=== PATIENT | female | born 1985 | race African-American/Black ===

== ENCOUNTER 2016-10-06 07:28 | Emergency (ER) | payer OTHER, MEDICAID ==
[~2016-10-06] VITALS: Ht 157.5 cm; Wt 68.7 kg
[~2016-10-06 07:28] MED LIST: ACET325T PO; BENZ1TAB PO; HALO5TAB PO; LEVA750T PO; LEVE500T8 PO; PARO30TA2 PO; PRAZ2CAP PO
[2016-10-06 07:30] VITALS: BP 122/78; PULSE 88; RESP 16; TEMP 98; O2SAT 95
--- NOTE | 2016-10-06 08:02 | PD ---
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 Patient reports that 48 hours ago, she used crack, reports that after she used crack, she then had oral sex with a "man in a truck" and then proceeded to have vaginal intercourse without using any contraceptives. Patient reports that she developed rash and bumps around her lips as well as purulent discharge. Patient concerned that she may have an STD. Patient with no fevers or chills this time. Patient denies abdominal pain, nausea or vomiting. Patient with no other complaints at this time. PFSH Past Medical History ADD: Yes ADHD: Yes Anemia: Yes Arthritis: No Asthma: Yes Blood Disorders: No Bipolar Disorder: Yes Anxiety: Yes Depression: Yes Heart Rhythm Problems: No Cancer: No Cardiovascular Problems: No High Cholesterol: No Chest Pain: No Congestive Heart Failure: No COPD: No Cerebrovascular Accident: No Diabetes: No Diminished Hearing: No Endocrine: No Gastrointestinal Disorders: No GERD: Yes Genitourinary: Yes Headaches: Yes Hepatitis: No Hiatal Hernia: No Hypertension: No Immune Disorder: No Implanted Vascular Access Dvce: No Kidney Stones: No Musculoskeletal: No Neurologic: Yes Psychiatric: Yes (BIPOLAR, PSTD, ADHD) Reproductive: No Respiratory: Yes (ASTHMA) Migraines: No Myocardial Infarction: No Renal Failure: No Seizures: Yes Sleep Apnea: No Thyroid Disease: No Ulcer: No ?: Not LMP: 10/02/16 Menopausal: No : 4 Para: 2 Miscarriage: 1 : 0 Past Surgical History Abdominal Surgery: No Appendectomy: No Cardiac Surgery: No Cholecystectomy: Yes Ear Surgery: No Endocrine Surgery: No Eye Surgery: No Genitourinary Surgery: No Gynecologic Surgery: No Oral Surgery: Yes Thoracic Surgery: No Tonsillectomy: Yes (T&A AGE 13) Other Surgery: Yes (denies) Social History Alcohol Use: No Tobacco Use: Yes (2-3 CIGARETTES DAILY) Substance Use: Yes (MARIJUANA OCCASIONALLY, pt states been using Flakka) Allergies-Medications (Allergen,Severity, Reaction): Coded Allergies: Bee Sting (Verified Allergy, Severe, Anaphylaxis, 3/6/17) Penicillin (Verified Allergy, Severe, HIVES, THROAT CLOSED, 10/06/16) UNKNOWN Sulfa (Verified Allergy, Severe, HIVES, THROAT CLOSED, 10/06/16) UNKNOWN *MDRO Multi-Drug Resistant Organism (Verified Allergy, Unknown, 10/06/16) MRSA Reported Meds & Prescriptions Reported Meds & Active Scripts Active Macrobid (Nitrofurantoin Monoh/Nitrofur Macro) 100 Mg Cap 100 Mg PO BID 10 Days Reported Levetiracetam 500 Mg Tab 500 Mg PO BID Review of Systems General / Constitutional: No: Fever Eyes: No: Visual changes HENT: No: Headaches Cardiovascular: No: Chest Pain or Discomfort Respiratory: No: Shortness of Breath Gastrointestinal: No: Abdominal Pain Genitourinary: Positive: Discharge, No: Dysuria Musculoskeletal: No: Pain Skin: No Rash Neurologic: No: Weakness Psychiatric: No: Depression Endocrine: No: Polydipsia Hematologic/Lymphatic: No: Easy Bruising Physical Exam Narrative GENERAL: NAD SKIN: Warm and dry. HEAD: Atraumatic. Normocephalic. ENT: No nasal bleeding or discharge. Mucous membranes pink and moist. patient with rash around lips, pt with whitish intraoral lesions around mucosa, no tongue swelling, uvula midline with no swelling, no thrush NECK: Trachea midline. No JVD. CARDIOVASCULAR: Regular rate and rhythm. No murmur appreciated. RESPIRATORY: No accessory muscle use. Clear to auscultation. Breath sounds equal bilaterally. GASTROINTESTINAL: Abdomen soft, non-tender, nondistended. Hepatic and splenic margins not palpable. : exam performed with RN at bedside, patient with yellow vaginal discharge, no cmt or adnexal tenderness MUSCULOSKELETAL: No obvious deformities. No clubbing. No cyanosis. No edema. NEUROLOGICAL: Awake and alert. No obvious cranial nerve deficits. Motor grossly within normal limits. Normal speech. PSYCHIATRIC: Appropriate mood and affect; insight and judgment normal. Data Data Last Documented VS Vital Signs Date Time Temp Pulse Resp B/P Pulse Ox O2 Delivery O2 Flow Rate FiO2 10/06/16 07:30 98.0 88 16 122/78 95 Room Air Orders Gc And Chlamydia Pcr (10/06/16 07:50) Wet Prep Profile (10/06/16 07:50) Urinalysis - C+S If Indicated (10/06/16 07:50) Ed Urine Pregnancytest Poc (10/06/16 07:50) Azithromycin Powd Pack (Zithromax Powd P (10/06/16 08:30) Urine Culture (10/06/16 07:55) Nitrofurantoin Monohyd Macrocr (Macrobid (10/06/16 10:00) Labs Laboratory Tests Test 10/06/16 07:55 Urine Color YELLOW Urine Turbidity HAZY Urine pH 6.0 Urine Specific [place] 1.016 Urine Protein 30 mg/dL Urine Glucose (UA) NEG mg/dL Urine Ketones 80 mg/dL Urine Occult Blood LARGE Urine Nitrite NEG Urine Bilirubin NEG Urine Urobilinogen LESS THAN 2.0 MG/DL Urine Leukocyte Esterase LARGE Urine RBC 2 /hpf Urine WBC 87 /hpf Urine WBC Clumps OCC Urine Squamous Epithelial 3 /hpf Cells Urine Bacteria MANY /hpf Microscopic Urinalysis Comment CULTURE INDICATED Clue Cells (Wet Prep) NONE SEEN Vaginal Trichomonas (Wet Prep) NONE SEEN Vaginal Yeast (Wet Prep) NONE SEEN MDM Medical Decision Making Medical Screen Exam Complete: Yes Emergency Medical Condition: Yes Interpretation(s) Vital Signs Date Time Temp Pulse Resp B/P Pulse Ox O2 Delivery O2 Flow Rate FiO2 10/06/16 07:30 98.0 88 16 122/78 95 Room Air Differential Diagnosis Cervicitis, STD, UTI Narrative Course Patient is a 31-year-old female who presents to emergency room with complaints of ulcerations around her lips as well as vaginal discharge after she performed oral sex and had vaginal intercourse 48 hours ago. Patient reports that she does not have access to boat tester, reports that the intercourse was unprotected. Patient concern for possible STDs. Patient with no fevers or chills, denies any abdominal pain at this time. Patient also with intraoral ulcerations, ulcerations appear to be herpetic in nature. We'll treat with acyclovir Plan to perform pelvic exam on patient. Pelvic exam performed with RN at bedside, patient with yellowish vaginal discharge. Plan to treat for possible gonorrhea/chlamydia. Reviewed UA with patient, will treat for UTI. Patient understands importance of following up with boat tester. Patient will follow up with cultures today. Discussed the importance of refraining from sexual activity until all cultures are resulted, understands that if cultures are positive, SEXUAL partners will need to be treated. Patient understands needs to follow-up with her primary care doctor as well as boat tester for full STD panel including but not limited to HIV Diagnosis Primary Impression: Cervicitis Additional Impressions: UTI (urinary tract infection) Qualified Code: N30.00 - Acute cystitis without hematuria Herpes Referrals: [facility] Patient Instructions: General Instructions Additional Instructions: Please follow-up with all cultures from today Do not purchase patent sexual activity until all cultures are resulted, if cultures are positive, all sexual partners will need to be treated Return to ER if symptoms progress or worsen Please follow-up with a boat tester as soon as possible Med/Other Pt SpecificInfo: Prescription(s) given Scripts Valacyclovir 500 Mg [id number] Mg PO TID #30 TAB Ref 0 Prov:Alondra Hernandez DO 10/06/16 Nitrofurantoin Monohydrate Macrocrystals (Macrobid)100 Mg [id number] Mg PO BID 10 Days Ref 0 Prov:Alondra Hernandez DO 10/06/16 Disposition: 01 DISCHARGE HOME Condition: Stable Alondra Hernandez DO Oct 06, 2016 08:01
[2016-10-06] MEDS ORDERED: AZITHROMYCIN PWD FOR SUSP 1 GM PACKET PO ONE (08:30)
[2016-10-06 08:37] LABS: BACTERIA, URINE MANY /hpf; BLOOD, URINE LARGE (NEG); COMMENT (UR) CULTURE INDICATED; CULTURE IF INDICATED CULTURE INDICATED; GLUCOSE,URINE NEG (NEG); KETONE, URINE 80 mg/dL (NEG); NITRITE,URINE NEG (NEG); SQUAMOUS EPITHELIAL CELL URINE 3 /hpf (0-5); URINE COLOR YELLOW (YELLW/STRAW)
[2016-10-06] MEDS ORDERED: MACR100C2 PO (09:55)
[2016-10-06] MEDS ORDERED: VALA500T PO (10:00)
[2016-10-06] MEDS ORDERED: NITROFURANTOIN MONOHYD MACROCR 100 MG CAP PO ONE (10:00)
[2016-10-06 13:42] LABS: CHLAMYDIA PCR NOT DETECTED (NOT DETECT); NEISSERIA PCR DETECTED (NOT DETECT)
== END 2016-10-06 10:33 | disposition home or self-care (01) ==
LOC: NEPC 07:28
DX: N72 Inflammatory disease of cervix uteri (principal); N39.0 Urinary tract infection, site not specified; B00.9 Herpesviral infection, unspecified; F19.90 Other psychoactive substance use, unspecified, uncomplicated; B96.29 Other Escherichia coli [E. coli] as the cause of diseases classified elsewhere; Z72.0 Tobacco use
CPT/HCPCS: 81001; 84703; 87077; 87086; 87186; 87210; 87491; 87591; 99283

== ENCOUNTER 2016-10-14 16:35 | Emergency (ER) | payer OTHER ==
[~2016-10-14] VITALS: Ht 157.5 cm; Wt 60.0 kg
[~2016-10-14 16:35] MED LIST changes: -ACET325T PO; -BENZ1TAB PO; -HALO5TAB PO; -LEVA750T PO; +MACR100C2 PO; -PARO30TA2 PO; -PRAZ2CAP PO; +VALA500T PO
[2016-10-14 16:37] VITALS: BP 124/75; PULSE 78; RESP 15; TEMP 98.3; O2SAT 98
--- NOTE | 2016-10-14 18:39 | PD ---
HPI Chief Complaint: Medical Clearance Time Seen by Provider: 18:39 Travel History International Travel<30 days: No Contact w/Intl Traveler<30days: No Traveled to known affect area: No History of Present Illness HPI 31 year-old female presents to the emergency department for evaluation of multiple vague complaints. Patient was recently diagnosed and treated for UTI and gonorrhea. She went to the health department diagnosed with herpetic lesions that surrounded her mouth. States that syphilis, HIV, and test for cure were all negative. States she has been "keeping straight" and not participating in sexual activity in exchange for crack cocaine. His concern because around her lips is dry. She does have 1 ulcerative lesion on the anterior aspect of her right upper lip. She had a chest antritis. No difficulty breathing. Is concerned she may have a yeast infection. Currently not having any vaginal discharge. No bleeding. No abdominal pain, nausea, vomiting. No fever or chills. No other symptoms to report. PFSH Past Medical History ADD: Yes ADHD: Yes Anemia: Yes Arthritis: No Asthma: Yes Blood Disorders: No Bipolar Disorder: Yes Anxiety: Yes Depression: Yes Heart Rhythm Problems: No Cancer: No Cardiovascular Problems: No High Cholesterol: No Chest Pain: No Congestive Heart Failure: No COPD: No Cerebrovascular Accident: No Diabetes: No Diminished Hearing: No Endocrine: No Gastrointestinal Disorders: No GERD: Yes Genitourinary: Yes Headaches: Yes Hepatitis: No Hiatal Hernia: No Hypertension: No Immune Disorder: No Implanted Vascular Access Dvce: No Kidney Stones: No Musculoskeletal: No Neurologic: Yes Psychiatric: Yes (BIPOLAR, PSTD, ADHD) Reproductive: No Respiratory: Yes (ASTHMA) Migraines: No Myocardial Infarction: No Renal Failure: No Seizures: Yes Sleep Apnea: No Thyroid Disease: No Ulcer: No ?: Unknown LMP: 09/2016 Menopausal: No : 4 Para: 2 Miscarriage: 1 : 0 Past Surgical History Abdominal Surgery: No Appendectomy: No Cardiac Surgery: No Cholecystectomy: Yes Ear Surgery: No Endocrine Surgery: No Eye Surgery: No Genitourinary Surgery: No Gynecologic Surgery: No Oral Surgery: Yes Thoracic Surgery: No Tonsillectomy: Yes (T&A AGE 13) Other Surgery: Yes (denies) Social History Alcohol Use: No Tobacco Use: Yes (2-3 CIGARETTES DAILY) Substance Use: Yes (MARIJUANA OCCASIONALLY, pt states been using Flakka, cocaine) Allergies-Medications (Allergen,Severity, Reaction): Coded Allergies: Bee Sting (Verified Allergy, Severe, Anaphylaxis, 10/14/16) Penicillin (Verified Allergy, Severe, HIVES, THROAT CLOSED, 10/14/16) UNKNOWN Sulfa (Verified Allergy, Severe, HIVES, THROAT CLOSED, 10/14/16) UNKNOWN *MDRO Multi-Drug Resistant Organism (Verified Allergy, Unknown, 10/14/16) MRSA Reported Meds & Prescriptions Reported Meds & Active Scripts Active Diflucan (Fluconazole) 150 Mg Tab 150 Mg PO ONCE Valacyclovir (Valacyclovir HCl) 500 Mg Tab 500 Mg PO TID Macrobid (Nitrofurantoin Monoh/Nitrofur Macro) 100 Mg Cap 100 Mg PO BID 10 Days Reported Levetiracetam 500 Mg Tab 500 Mg PO BID Review of Systems Except as stated in HPI: all other systems reviewed are Neg Physical Exam Narrative GENERAL: Well-nourished female patient, ambulatory distress SKIN: Warm and dry. Perioral Hypopigmentation with some flaking skin. There is acanthus ulcer inside the superior lip on the right. HEAD: Atraumatic. Normocephalic. EYES: Pupils equal and round. No scleral icterus. No injection or drainage. ENT: No nasal bleeding or discharge. Mucous membranes pink and moist. NECK: Trachea midline. No JVD. CARDIOVASCULAR: Regular rate and rhythm. No murmur appreciated. RESPIRATORY: No accessory muscle use. Clear to auscultation. Breath sounds equal bilaterally. GASTROINTESTINAL: Abdomen soft, non-tender, nondistended. Hepatic and splenic margins not palpable. GENITOURINARY: Normal external genitalia without lesions. There is a chunky white discharge in between the labia consistent with a yeast infection. Bleeding or drainage from the vaginal vault. MUSCULOSKELETAL: No obvious deformities. No clubbing. No cyanosis. No edema. NEUROLOGICAL: Awake and alert. No obvious cranial nerve deficits. Motor grossly within normal limits. Normal speech. Data Data Last Documented VS Vital Signs Date Time Temp Pulse Resp B/P Pulse Ox O2 Delivery O2 Flow Rate FiO2 10/14/16 18:54 70 16 113/56 97 Room Air 10/14/16 16:37 98.3 Orders Gc And Chlamydia Pcr (10/14/16 18:48) Urinalysis - C+S If Indicated (10/14/16 18:48) Ed Urine Pregnancytest Poc (10/14/16 18:48) Labs Laboratory Tests Test 10/14/16 18:57 Urine Color YELLOW Urine Turbidity CLOUDY Urine pH 7.5 Urine Specific [place] 1.020 Urine Protein TRACE mg/dL Urine Glucose (UA) NEG mg/dL Urine Ketones NEG mg/dL Urine Occult Blood NEG Urine Nitrite NEG Urine Bilirubin NEG Urine Urobilinogen LESS THAN 2.0 MG/DL Urine Leukocyte Esterase TRACE Urine RBC 5 /hpf Urine WBC 6 /hpf Urine Squamous Epithelial 9 /hpf Cells Urine Amorphous Sediment RARE Urine Bacteria RARE /hpf Microscopic Urinalysis Comment CULT NOT INDICATED MDM Medical Decision Making Medical Screen Exam Complete: Yes Emergency Medical Condition: Yes Medical Record Reviewed: Yes Differential Diagnosis Candidiasis versus cervicitis versus STD versus UTI Narrative Course 31-year-old female presents to the emergency department for evaluation. Physical exam is consistent with a perioral dermatitis likely secondary to recent herpetic outbreak. Patient does have an acanthus on the inside of the right superior lip. Vaginal exam is consistent with a vaginal candidiasis. Patient will be given a prescription for Diflucan. She is counseled on care. She is encouraged to follow-up with primary care provider and return immediately with any acute worsening symptoms. Diagnosis Primary Impression: Vaginal candidiasis Additional Impressions: Canker sore Perioral dermatitis Referrals: [facility] Primary Care Physician Patient Instructions: General Instructions, Vulvovaginal Candidiasis (ED) Additional Instructions: Maintain perineal hygiene Follow-up with a b2b sales manager Return immediately with any acute worsening symptoms Med/Other Pt SpecificInfo: Prescription(s) given Scripts Fluconazole (Diflucan)150 Mg [id number] Mg PO ONCE #1 TAB Ref 0 Prov:Yani Pressley 10/14/16 Disposition: 01 DISCHARGE HOME Condition: Stable Yani Pressley Oct 14, 2016 18:39
[2016-10-14 18:54] VITALS: BP 113/56; PULSE 70; RESP 16; O2SAT 97
[2016-10-14 19:21] LABS: BACTERIA, URINE RARE /hpf; BLOOD, URINE NEG (NEG); COMMENT (UR) CULT NOT INDICATED; CULTURE IF INDICATED CULT NOT INDICATED; GLUCOSE,URINE NEG (NEG); KETONE, URINE NEG (NEG); NITRITE,URINE NEG (NEG); PH, URINE 7.5 (5.0-8.5); SQUAMOUS EPITHELIAL CELL URINE 9 /hpf (0-5); URINE COLOR YELLOW (YELLW/STRAW)
[2016-10-14] MEDS ORDERED: DIFL150T PO (20:37)
[2016-10-14 22:41] LABS: CHLAMYDIA PCR NOT DETECTED (NOT DETECT); NEISSERIA PCR NOT DETECTED (NOT DETECT)
== END 2016-10-14 22:00 | disposition home or self-care (01) ==
LOC: NEPE 16:35
DX: B37.3 Candidiasis of vulva and vagina (principal); K12.0 Recurrent oral aphthae; L71.0 Perioral dermatitis; J45.909 Unspecified asthma, uncomplicated; F17.210 Nicotine dependence, cigarettes, uncomplicated
CPT/HCPCS: 81001; 84703; 87491; 87591; 99283

== ENCOUNTER 2016-11-26 19:59 | Emergency (ER) | payer OTHER ==
[~2016-11-26 19:59] MED LIST changes: +DIFL150T PO
[2016-11-26 20:01] VITALS: BP 117/91; PULSE 112; RESP 18; TEMP 99.7; O2SAT 97
[2016-11-26] MEDS ORDERED: SODIUM CHLOR 0.9% 1000 ML INJ 1,000 ML IV SCH (20:22)
--- NOTE | 2016-11-26 20:25 | PD ---
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 Patient states she has history of pancreatitis and was told that she should not drink alcohol. She continues to drink alcohol and states that she is beginning have nausea and vomiting. She also thinks she may be because she has not had a menstrual cycle since September 03. She also is reporting a thick greenish white vaginal discharge and odor and believes she may have an STD. Denies any fever or chills. No chest tightness. No difficulty breathing. No other symptoms to report. PFSH Past Medical History ADD: Yes ADHD: Yes Anemia: Yes Arthritis: No Asthma: Yes Blood Disorders: No Bipolar Disorder: Yes Anxiety: Yes Depression: Yes Heart Rhythm Problems: No Cancer: No Cardiovascular Problems: No High Cholesterol: No Chest Pain: No Congestive Heart Failure: No COPD: No Cerebrovascular Accident: No Diabetes: No Diminished Hearing: No Endocrine: No Gastrointestinal Disorders: No GERD: Yes Genitourinary: No Headaches: Yes Hepatitis: No Hiatal Hernia: No Hypertension: No Immune Disorder: No Implanted Vascular Access Dvce: No Kidney Stones: No Musculoskeletal: No Neurologic: Yes Psychiatric: Yes (BIPOLAR, PSTD, ADHD) Reproductive: No Respiratory: Yes (asthma) Migraines: No Myocardial Infarction: No Renal Failure: No Seizures: Yes Sleep Apnea: No Thyroid Disease: No Ulcer: No ?: Unknown LMP: 09/03/16 Menopausal: No : 4 Para: 2 Miscarriage: 1 : 0 Past Surgical History Abdominal Surgery: No Appendectomy: No Cardiac Surgery: No Cholecystectomy: Yes Ear Surgery: No Endocrine Surgery: No Eye Surgery: No Genitourinary Surgery: No Gynecologic Surgery: No Oral Surgery: Yes Thoracic Surgery: No Tonsillectomy: Yes (T&A AGE 13) Other Surgery: Yes (denies) Social History Alcohol Use: No Tobacco Use: Yes (2-3 CIGARETTES DAILY) Substance Use: Yes (MARIJUANA OCCASIONALLY, pt states been using Flakka, cocaine) Allergies-Medications (Allergen,Severity, Reaction): Coded Allergies: Bee Sting (Verified Allergy, Severe, Anaphylaxis, 10/14/16) Penicillin (Verified Allergy, Severe, HIVES, THROAT CLOSED, 10/14/16) UNKNOWN Sulfa (Verified Allergy, Severe, HIVES, THROAT CLOSED, 10/14/16) UNKNOWN *MDRO Multi-Drug Resistant Organism (Verified Allergy, Unknown, 10/14/16) MRSA Reported Meds & Prescriptions Reported Meds & Active Scripts Active Diflucan (Fluconazole) 150 Mg Tab 150 Mg PO ONCE Valacyclovir (Valacyclovir HCl) 500 Mg Tab 500 Mg PO TID Macrobid (Nitrofurantoin Monoh/Nitrofur Macro) 100 Mg Cap 100 Mg PO BID 10 Days Reported Levetiracetam 500 Mg Tab 500 Mg PO BID Review of Systems Except as stated in HPI: all other systems reviewed are Neg Physical Exam Narrative GENERAL: Well-nourished female patient, in no acute distress SKIN: Focused skin assessment warm/dry. HEAD: Atraumatic. Normocephalic. EYES: Pupils equal and round. No scleral icterus. No injection or drainage. ENT: No nasal bleeding or discharge. Mucous membranes pink and moist. NECK: Trachea midline. No JVD. CARDIOVASCULAR: Regular rate and rhythm. No murmur appreciated. RESPIRATORY: No accessory muscle use. Clear to auscultation. Breath sounds equal bilaterally. GASTROINTESTINAL: Abdomen soft, nondistended. Epigastric tenderness to palpation.. Hepatic and splenic margins not palpable. GENITOURINARY: Normal external genitalia without lesions or erythema. Vaginal vault without blood. There is a yellow white discharge. Cervical os was closed. Cervical motion tenderness.. Uterus nontender and nonenlarged. Bilateral adnexa nontender without masses. MUSCULOSKELETAL: No obvious deformities. No clubbing. No cyanosis. No edema. NEUROLOGICAL: Awake and alert. No obvious cranial nerve deficits. Motor grossly within normal limits. Normal speech. PSYCHIATRIC: Appropriate mood and affect; insight and judgment normal. Data Data Last Documented VS Vital Signs Date Time Temp Pulse Resp B/P Pulse Ox O2 Delivery O2 Flow Rate FiO2 11/26/16 20:01 99.7 112 18 117/91 97 Room Air Orders Complete Blood Count With Diff (11/26/16 20:22) Comprehensive Metabolic Panel (11/26/16 20:22) Lipase (11/26/16 20:22) Urinalysis - C+S If Indicated (11/26/16 20:22) Iv Access Insert/Monitor (11/26/16 20:22) Ecg Monitoring (11/26/16 20:22) Oximetry (11/26/16 20:22) Sodium Chlor 0.9% 1000 Ml Inj (Ns 1000 M (11/26/16 20:22) Sodium Chloride 0.9% Flush (Ns Flush) (11/26/16 20:30) Ed Urine Pregnancytest Poc (11/26/16 20:22) Wet Prep Profile (11/26/16 20:22) Gc And Chlamydia Pcr (11/26/16 20:22) Ceftriaxone Inj (Rocephin Inj) (11/26/16 20:45) Lidocaine 1% Inj (50 Ml) (Xylocaine 1% I (11/26/16 20:45) Azithromycin (Zithromax) (11/26/16 20:45) MDM Medical Decision Making Medical Screen Exam Complete: Yes Emergency Medical Condition: Yes Medical Record Reviewed: Yes Differential Diagnosis PID versus STD versus cervicitis versus UTI versus versus gastritis versus pancreatitis versus cholecystitis Narrative Course 31 year-old female presents to the emergency department for evaluation of epigastric abdominal pain, possible , and vaginal discharge. Patient appears without distress. She does have epigastric tenderness to palpation. She also has a thick vaginal discharge and cervical motion tenderness. She is treated empirically for gonorrhea and chlamydia while GC PCR pends. Wet prep, UA, and abdominal lab work is sent. 2043 patient states she has been unable to void. She is in the process of adding IV normal saline bolus. 2099 patient signed out to my attending physician Dr. Munguia who will soon care and disposition will pend his judgment. Condition: Stable PressleyEdita aguilerasally MORFIN Nov 26, 2016 20:24
[2016-11-26] MEDS ORDERED: cefTRIAXone 250 MG VIAL IM ONE (20:45)
[2016-11-26] MEDS ORDERED: AZITHROMYCIN 250 MG TAB PO ONE (20:45)
[2016-11-26] MEDS ORDERED: LIDOCAINE HCL 1% 50 ML VIAL XX ONE (20:45)
[2016-11-26 21:28] LABS: AUTOMATED NEUTROPHIL # 5.1 TH/MM3 (1.8-7.7); BASOPHIL % 0.4 % (0.0-2.0); EOSINOPHIL % 0.6 % (0.0-4.0); HEMATOCRIT 41.2 % (35.0-46.0); HEMO FLAGS DIFF FINAL; LYMPH % 14.5 % (9.0-44.0); MEAN CELL VOLUME 91.7 FL (80.0-100.0); MEAN CORPUSCULAR HEMOGLOBIN 30.3 PG (27.0-34.0); MONO % 8.2 % (0.0-8.0); NEUT % 76.3 % (16.0-70.0); PLATELET COUNT 226 TH/MM3 (150-450); RED BLOOD COUNT 4.49 MIL/MM3 (4.00-5.30); RED CELL DISTRIBUTION WIDTH 15.1 % (11.6-17.2); WHITE BLOOD COUNT 6.6 TH/MM3 (4.0-11.0)
[2016-11-26 21:30] LABS: BLOOD, URINE NEG (NEG); COMMENT (UR) CULT NOT INDICATED; CULTURE IF INDICATED CULT NOT INDICATED; GLUCOSE,URINE NEG (NEG); KETONE, URINE NEG (NEG); MUCUS URINE FEW /lpf (OCC); NITRITE,URINE NEG (NEG); SQUAMOUS EPITHELIAL CELL URINE <1 /hpf (0-5); URINE COLOR YELLOW (YELLW/STRAW)
[2016-11-26] MEDS ORDERED: PANTOPRAZOLE SODIUM 40 MG VIAL IVP ONE (21:30)
[2016-11-26] MEDS ORDERED: ALUMINUM/MAGNESIUM/SIMETH 30 ML CUP PO ONE (21:30)
[2016-11-26] MEDS ORDERED: KETOROLAC TROMETHAMINE 30 MG/ML (IVP) VIAL IV PUSH ONE (21:30)
[2016-11-26] MEDS ORDERED: LIDOCAINE VISCOUS 2% SOLN 15 ML UDC PO ONE (21:30)
[2016-11-26 21:42] LABS: ANION GAP 7 MEQ/L (5-15); AST (GOT) 19 U/L (15-37); BICARBONATE 27.2 MEQ/L (21.0-32.0); BLOOD UREA NITROGEN 11 MG/DL (7-18); CHLORIDE 103 MEQ/L (98-107); GLOMERULAR FILTRATION RATE 104 ML/MIN (>89); POTASSIUM 3.9 MEQ/L (3.5-5.1); SODIUM (NA) 137 MEQ/L (136-145)
[2016-11-26 21:46] LABS: ALKALINE PHOSPHATASE 68 U/L (45-117); ALT (GPT) 21 U/L (10-53); TOTAL BILIRUBIN ADULT 0.2 MG/DL (0.2-1.0)
[2016-11-26] MEDS: SODIUM CHLORIDE 0.9% FLUSH 10 ML FLUSH IV FLUSH PRN ×3 (22:05→22:20)
[2016-11-26] MEDS ORDERED: DOXY100T PO (23:31)
--- NOTE | 2016-11-26 23:31 | PD ---
Physical Exam Narrative Patient was seen by my fast food sales assistant and signed out to me. Data Data Last Documented VS Vital Signs Date Time Temp Pulse Resp B/P Pulse Ox O2 Delivery O2 Flow Rate FiO2 11/26/16 20:01 99.7 112 18 117/91 97 Room Air Orders Complete Blood Count With Diff (11/26/16 20:22) Comprehensive Metabolic Panel (11/26/16 20:22) Lipase (11/26/16 20:22) Urinalysis - C+S If Indicated (11/26/16 20:22) Iv Access Insert/Monitor (11/26/16 20:22) Ecg Monitoring (11/26/16 20:22) Oximetry (11/26/16 20:22) Sodium Chlor 0.9% 1000 Ml Inj (Ns 1000 M (11/26/16 20:22) Sodium Chloride 0.9% Flush (Ns Flush) (11/26/16 20:30) Ed Urine Pregnancytest Poc (11/26/16 20:22) Wet Prep Profile (11/26/16 20:22) Gc And Chlamydia Pcr (11/26/16 20:22) Ceftriaxone Inj (Rocephin Inj) (11/26/16 20:45) Lidocaine 1% Inj (50 Ml) (Xylocaine 1% I (11/26/16 20:45) Azithromycin (Zithromax) (11/26/16 20:45) Ketorolac Inj (Toradol Inj) (11/26/16 21:30) Pantoprazole Inj (Protonix Inj) (11/26/16 21:30) Al-Mag Hy-Si 40-40-4 Mg/Ml Liq (Mag-Al P (11/26/16 21:30) Lidocaine 2% Viscous (Xylocaine 2% Visco (11/26/16 21:30) Labs Laboratory Tests Test 11/26/16 11/26/16 11/26/16 20:31 20:44 21:00 Clue Cells (Wet Prep) NONE SEEN Vaginal Trichomonas (Wet Prep) NONE SEEN Vaginal Yeast (Wet Prep) NONE SEEN White Blood Count 6.6 TH/MM3 Red Blood Count 4.49 MIL/MM3 Hemoglobin 13.6 GM/DL Hematocrit 41.2 % Mean Corpuscular Volume 91.7 FL Mean Corpuscular Hemoglobin 30.3 PG Mean Corpuscular Hemoglobin 33.0 % Concent Red Cell Distribution Width 15.1 % Platelet Count 226 TH/MM3 Mean Platelet Volume 9.0 FL Neutrophils (%) (Auto) 76.3 % Lymphocytes (%) (Auto) 14.5 % Monocytes (%) (Auto) 8.2 % Eosinophils (%) (Auto) 0.6 % Basophils (%) (Auto) 0.4 % Neutrophils # (Auto) 5.1 TH/MM3 Lymphocytes # (Auto) 1.0 TH/MM3 Monocytes # (Auto) 0.5 TH/MM3 Eosinophils # (Auto) 0.0 TH/MM3 Basophils # (Auto) 0.0 TH/MM3 CBC Comment DIFF FINAL Differential Comment Sodium Level 137 MEQ/L Potassium Level 3.9 MEQ/L Chloride Level 103 MEQ/L Carbon Dioxide Level 27.2 MEQ/L Anion Gap 7 MEQ/L Blood Urea Nitrogen 11 MG/DL Creatinine 0.79 MG/DL Estimat Glomerular Filtration 104 ML/MIN Rate Random Glucose 87 MG/DL Calcium Level 8.5 MG/DL Total Bilirubin 0.2 MG/DL Aspartate Amino Transf 19 U/L (AST/SGOT) Alanine Aminotransferase 21 U/L (ALT/SGPT) Alkaline Phosphatase 68 U/L Total Protein 7.4 GM/DL Albumin 3.5 GM/DL Lipase 189 U/L Urine Color YELLOW Urine Turbidity CLEAR Urine pH 6.0 Urine Specific [place] 1.025 Urine Protein NEG mg/dL Urine Glucose (UA) NEG mg/dL Urine Ketones NEG mg/dL Urine Occult Blood NEG Urine Nitrite NEG Urine Bilirubin NEG Urine Urobilinogen 2.0 MG/DL Urine Leukocyte Esterase NEG Urine RBC 1 /hpf Urine WBC 2 /hpf Urine Squamous Epithelial <1 /hpf Cells Urine Mucus FEW /lpf Microscopic Urinalysis Comment CULT NOT INDICATED MDM Supervised Visit with ANTON: Yes Interpretation(s) 23:13 PM. CBC within normal limit. CMP within normal limit. UA is negative. Wet prep negative. Urine test negative. Diagnosis Primary Impression: PID (acute pelvic inflammatory disease) Patient Instructions: General Instructions Additional Instruction: Take medications as directed. Follow-up with personal physician. Return if worse. Med/Other Pt SpecificInfo: Prescription(s) given Scripts Doxycycline Hyclate 100 Mg Frc160 Mg PO BID #14 TAB Prov:Miguel Munguia MD 11/26/16 Disposition: 01 DISCHARGE HOME Condition: Stable Miguel Munguia MD Nov 26, 2016 23:31
[2016-11-27 00:30] LABS: CHLAMYDIA PCR NOT DETECTED (NOT DETECT); NEISSERIA PCR NOT DETECTED (NOT DETECT)
== END 2016-11-26 23:44 | disposition home or self-care (01) ==
LOC: NEPD 19:59
DX: N73.9 Female pelvic inflammatory disease, unspecified (principal); R10.13 Epigastric pain; R10.12 Left upper quadrant pain; R11.2 Nausea with vomiting, unspecified; Z72.0 Tobacco use; Z86.59 Personal history of other mental and behavioral disorders; Z86.2 Personal history of diseases of the blood and blood-forming organs and certain disorders involving the immune mechanism; Z87.09 Personal history of other diseases of the respiratory system; Z87.19 Personal history of other diseases of the digestive system; Z86.69 Personal history of other diseases of the nervous system and sense organs
CPT/HCPCS: 80053; 81001; 83690; 84703; 85025; 87210; 87491; 87591; 96372; 96374; 96375; 99284; C9113; J0696; J1885; J7030

== ENCOUNTER 2017-05-06 14:12 | Observation (INO) | payer MEDICAID, OTHER ==
[2017-05-06] VITALS (7 sets, daily range): BP systolic 70–92; BP diastolic 38–73; PULSE 81–90; TEMP 99.2
[~2017-05-06 14:12] MED LIST changes: -DIFL150T PO; +DOXY100T PO; -LEVE500T8 PO; -MACR100C2 PO; -VALA500T PO
--- NOTE | 2017-05-06 15:10 | PD ---
HPI Chief Complaint cramping Date Seen: May 06, 2017 Time Seen: 14:52 (Emilio Moody MD, R2) Travel History International Travel<30 Days: No Contact w/Intl Traveler<30Days: No (Emilio Moody MD, R2) History of Present Illness HPI Ms. Boss is a 31-year-old female at 26 weeks who presents with cramping. Patient states she started noticing cramping earlier today. Also having some green discharge for the last 2 weeks. She thinks it might be due to not eating or drinking anything last 2 weeks. She is concerned that she has gonorrhea. She also states she has been taking using cocaine and flakka every day for the last few months. She denies any vaginal bleeding or loss of fluids. Endorses movement. She is currently homeless and has limited care. She states she did see Dr. Hilario early on in while in [place]. Endorses sexual activity last night. She also states she has a history of seizures and her last one was 2 days ago. States she hasn' t taken her vitamins for several weeks. Also has not taken her psych meds or keppra for several days, although she has the medications. She is unsure of any labs or ultrasound. Weeks Gestation: 26 Para: 3 : 5 Miscarriage: 1 (Emilio Moody MD, R2) HPI 31 yo @ 26w0d. care with Dr. Hilario at [facility]. She has had two visits at the office and reports on visit while incarcerated. She is out on crump until the delivery. She presents with c/o cramping today/ abdominal pain. She reports being hungry and has not eaten in several days and has not been drinking water. She reports using cocaine and flakka daily, and has drank ETOH during this . She is homeless. She engages in high- risk sex, last 2 days ago. She had had gonorrhea this and is concerns for re-infection. (Caron Maya MD) History Past Medical History Narrative Medical Seizures Asthma Bipolar (Emilio Moody MD, R2) Narrative Medical History of PP Depresion Polysubstance abuse poor social situation STD - Trich, GN, HSV Seizure d/o Bipolar d/ (Caron Maya MD) Obstetric History Obstetric History 1st - at term 2 - at term 3 - miscarriage 4 - at term, child passed at 4 months due to heart defect (Emilio Moody MD, R2) Obstetric History 2007 - lives with her mother 2009 - lives with her mother 2011 - @ 4mo from congenital heart defect SAB (Caron Maya MD) Past Surgical History Narrative Surgical Tonsillectomy Adenoidectomy Cholecystectomy (Emilio Moody MD, R2) Family History Family History: Negative (Emilio Moody MD, R2) Social History Alcohol Use: No Tobacco Use: Yes (up to 1 PPD) Substance Abuse: Yes (cocaine, flakka daily) (Emilio Moody MD, R2) Alcohol Use: Yes Tobacco Use: Yes Substance Abuse: Yes (Caron Maya MD) Allergies-Medications (Allergen,Severity, Reaction): Coded Allergies: Sulfa (Sulfonamide Antibiotics) (Unverified Allergy, Severe, HIVES, THROAT CLOSED, 03/17/17) UNKNOWN bee venom protein (honey bee) (Unverified Allergy, Severe, Anaphylaxis, ) penicillin G (Unverified Allergy, Severe, HIVES, THROAT CLOSED, 03/17/17) UNKNOWN *MDRO Multi-Drug Resistant Organism (Verified Allergy, Unknown, 10/14/16) MRSA Home Meds Active Scripts Doxycycline Hyclate (Doxycycline Hyclate) 100 Mg Tab, 100 MG PO BID, #14 TAB Prov:Miguel Munguia MD 11/26/16 Review of Systems General / Constitutional: Weight Gain, No: Fever, Chills Eyes: No: Diploplia, Blurred Vision, Visual changes HENT: No: Headaches, Vertigo Cardiovascular: No: Irregular Rhythm, Chest Pain or Discomfort, Palpitations, Tachycardia Respiratory: No: Cough, Short of Breath, Wheezing Gastrointestinal: No: Nausea, Vomiting, Diarrhea, Abdominal Pain Genitourinary: Pelvic Pain, Discharge, No: Urgency, Frequency, Dysuria, Vaginal Bleeding Musculoskeletal: No: Limited ROM, Weakness Skin: No Rash, No Itching, No Dryness Neurologic: Seizures, No: Weakness, Dizziness, Syncope Psychiatric: Mood Disorder, No: Suicidal Ideations Endocrine: No: Heat Intolerance, Cold Intolerance (Emilio Moody MD, R2) General / Constitutional: No: Fever, Chills Eyes: No: Blurred Vision, Visual changes HENT: No: Headaches, Lightheadedness Cardiovascular: No: Chest Pain or Discomfort, Palpitations Respiratory: No: Cough, Short of Breath Gastrointestinal: Abdominal Pain (per hpi), No: Nausea, Vomiting, Diarrhea, Loss of Appetite Genitourinary: Discharge, No: Urgency, Frequency, Dysuria, Vaginal Bleeding Musculoskeletal: No: Limited ROM, Weakness Skin: No Rash, No Itching, No Lesions Neurologic: No: Focal Abnormalities, Coordination Problem (Caron Maya MD ) Physical Exam Narrative GENERAL: Well-nourished, well-developed patient. SKIN: Warm and dry. HEAD: Normocephalic and atraumatic. EYES: No scleral icterus. No injection or drainage. ENT: No nasal drainage noted. Mucous membranes pink. Airway patent. NECK: Supple, trachea midline. No JVD. CARDIOVASCULAR: Regular rate and rhythm without murmurs, gallops, or rubs. RESPIRATORY: Breath sounds equal bilaterally. No accessory muscle use. ABDOMEN/GI: Abdomen soft, non-tender, bowel sounds present, no rebound, no guarding Gravid to 26 weeks size GENITOURINARY: External Genitalia: intact and normal in appearance Cervix: [-] Dilatation: [-] Effacement: [-] Station: [-] Presentation: [-] Membranes: [intact or ruptured] Uterine Contractions: [-] FHT's: Category: [-] Baseline: [-] Reactive: [-] Variability: [-] Decels: [-] EXTREMITIES: No cyanosis or edema. BACK: Nontender without obvious deformity. No CVA tenderness. NEUROLOGICAL: Awake and alert. Motor and sensory grossly within normal limits. Five out of 5 muscle strength in all muscle groups. Normal speech. (Emilio Moody MD, R2) Exam Limitations: Poor Historian Vital Signs Date Time Temp Pulse Resp B/P (MAP) Pulse Ox O2 Delivery O2 Flow Rate FiO2 05/06/17 18:48 90 70/38 (49) 05/06/17 18:45 99.2 Narrative US: [id number] 26%tile normal growth cephalic posterior placenta grade 1-2, 3VC Normal amniotic fluid Cervical length 43mm No anomalies noted (Caron Maya MD) Data Data Vital Signs Reviewed: Yes (Emilio Moody MD, R2) Vital Signs Reviewed: Yes (Caron Maya MD) MDM Medical Record Reviewed: Yes (Emilio Moody MD, R2) Medical Record Reviewed: Yes Narrative Course / MDM 26 weeks polysubstance abuse with recent flakka and cocaine, last today poor social situation high risk sexual behavior and at risk for STD malnutrition and dehydration seizure d/o baby with prior congenital heart disease Plan admit for observation 26 weeks very limited [facility] has seen Dr. Hilario while incarcerated and 2 visits at [facility] records reviewed obtained Diagnostic US: normal growth Polysubstance Abuse Hx of drug abuse and ETOH usage this flakka and cocaine daily, last this am Poor social situation Homeless high risks sexual behavior - STD panel pending drug abuse, possible ETOH abuse hx of possible bipolar d/o malnourished and dehydrated - IV hydration consulted case management and psychiatry Seizure Disorder states she had been on Keptra but has not been taking last seizure 2 days ago? Will restart medication consult as needed (Caron Maya MD) Emilio Moody MD, R2 May 06, 2017 15:10 Caron Maya MD May 06, 2017 20:28
[2017-05-06] MEDS ORDERED: SODIUM CHLORIDE 0.9% FLUSH 10 ML FLUSH IV FLUSH PRN (17:00)
[2017-05-06] MEDS ORDERED: ALUMINUM/MAGNESIUM/SIMETH 30 ML CUP PO PRN (17:00)
[2017-05-06] MEDS ORDERED: ONDANSETRON ODT 4 MG TAB PO PRN (17:00)
[2017-05-06] MEDS: ACETAMINOPHEN 325 MG TAB PO PRN (19:05)
[2017-05-06] MEDS: LACTATED RINGER'S 1000 ML INJ 1,000 ML IV SCH (19:40)
[2017-05-06 20:05] LABS: AUTOMATED NEUTROPHIL # 8.8 TH/MM3 (1.8-7.7); BASOPHIL % 0.1 % (0.0-2.0); EOSINOPHIL # 0.1 TH/MM3 (0-0.4); EOSINOPHIL % 0.7 % (0.0-4.0); HEMATOCRIT 32.9 % (35.0-46.0); HEMO FLAGS DIFF FINAL; LYMPH % 14.8 % (9.0-44.0); LYMPHOCYTE # 1.7 TH/MM3 (1.0-4.8); MEAN CELL VOLUME 92.7 FL (80.0-100.0); MEAN CORPUSCULAR HEMOGLOBIN 31.9 PG (27.0-34.0); MEAN CORPUSCULAR HGB CONC 34.4 % (32.0-36.0); MONO % 6.7 % (0.0-8.0); NEUT % 77.7 % (16.0-70.0); PLATELET COUNT 196 TH/MM3 (150-450); RED BLOOD COUNT 3.55 MIL/MM3 (4.00-5.30); RED CELL DISTRIBUTION WIDTH 13.4 % (11.6-17.2); WHITE BLOOD COUNT 11.3 TH/MM3 (4.0-11.0)
[2017-05-06 20:08] LABS: BACTERIA, URINE MANY /hpf; BLOOD, URINE NEG (NEG); COMMENT (UR) CULTURE INDICATED; CULTURE IF INDICATED CULTURE INDICATED; GLUCOSE,URINE 150 mg/dL (NEG); KETONE, URINE TRACE mg/dL (NEG); MUCUS URINE FEW /lpf (OCC); NITRITE,URINE NEG (NEG); SQUAMOUS EPITHELIAL CELL URINE 5 /hpf (0-5); URINE COLOR YELLOW (YELLW/STRAW)
[2017-05-06 20:23] LABS: ANION GAP 9 MEQ/L (5-15); AST (GOT) 18 U/L (15-37); BICARBONATE 24.3 MEQ/L (21.0-32.0); BLOOD UREA NITROGEN 5 MG/DL (7-18); CHLORIDE 103 MEQ/L (98-107); GLOMERULAR FILTRATION RATE 128 ML/MIN (>89); POTASSIUM 3.1 MEQ/L (3.5-5.1); SODIUM (NA) 136 MEQ/L (136-145)
[2017-05-06 20:25] LABS: ALT (GPT) 18 U/L (10-53)
[2017-05-06 20:27] LABS: ALKALINE PHOSPHATASE 77 U/L (45-117); TOTAL BILIRUBIN ADULT 0.2 MG/DL (0.2-1.0)
--- NOTE | 2017-05-06 20:29 | HHI.HP ---
History & Physical H&P HPI Chief Complaint cramping Date Seen: May 06, 2017 Time Seen: 14:52 (Emilio Moody MD, R2) Travel History International Travel<30 Days: No Contact w/Intl Traveler<30Days: No (Emilio Moody MD, R2) History of Present Illness HPI Ms. Boss is a 31-year-old female at 26 weeks who presents with cramping. Patient states she started noticing cramping earlier today. Also having some green discharge for the last 2 weeks. She thinks it might be due to not eating or drinking anything last 2 weeks. She is concerned that she has gonorrhea. She also states she has been taking using cocaine and flakka every day for the last few months. She denies any vaginal bleeding or loss of fluids. Endorses movement. She is currently homeless and has limited care. She states she did see Dr. Hilario early on in while in [place]. Endorses sexual activity last night. She also states she has a history of seizures and her last one was 2 days ago. States she hasn' t taken her vitamins for several weeks. Also has not taken her psych meds or keppra for several days, although she has the medications. She is unsure of any labs or ultrasound. Weeks Gestation: 26 Para: 3 : 5 Miscarriage: 1 (Emilio Moody MD, R2) HPI 31 yo @ 26w0d. care with Dr. Hilario at [facility]. She has had two visits at the office and reports on visit while incarcerated. She is out on crump until the delivery. She presents with c/o cramping today/ abdominal pain. She reports being hungry and has not eaten in several days and has not been drinking water. She reports using cocaine and flakka daily, and has drank ETOH during this . She is homeless. She engages in high- risk sex, last 2 days ago. She had had gonorrhea this and is concerns for re-infection. (Caron Maya MD) History (Limited) History Past Medical History Narrative Medical Seizures Asthma Bipolar (Emilio Moody MD, R2) Narrative Medical History of PP Depresion Polysubstance abuse poor social situation STD - Trich, GN, HSV Seizure d/o Bipolar d/ (Caron Maya MD) Obstetric History Obstetric History 1st - at term 2 - at term 3 - miscarriage 4 - at term, child passed at 4 months due to heart defect (Emilio Moody MD, R2) Obstetric History 2007 - lives with her mother 2009 - lives with her mother 2011 - @ 4mo from congenital heart defect SAB (Caron Maya MD) Past Surgical History Narrative Surgical Tonsillectomy Adenoidectomy Cholecystectomy (Emilio Moody MD, R2) Family History Family History: Negative (Emilio Moody MD, R2) Social History Alcohol Use: No Tobacco Use: Yes (up to 1 PPD) Substance Abuse: Yes (cocaine, flakka daily) (Emilio Moody MD, R2) Alcohol Use: Yes Tobacco Use: Yes Substance Abuse: Yes (Caron Maya MD) Allergies-Medications Allergies-Medications (Allergen,Severity, Reaction): Coded Allergies: Sulfa (Sulfonamide Antibiotics) (Unverified Allergy, Severe, HIVES, THROAT CLOSED, 03/17/17) UNKNOWN bee venom protein (honey bee) (Unverified Allergy, Severe, Anaphylaxis, ) penicillin G (Unverified Allergy, Severe, HIVES, THROAT CLOSED, 03/17/17) UNKNOWN *MDRO Multi-Drug Resistant Organism (Verified Allergy, Unknown, 10/14/16) MRSA Home Meds Active Scripts Doxycycline Hyclate (Doxycycline Hyclate) 100 Mg Tab, 100 MG PO BID, #14 TAB Prov:Miguel Munguia MD 11/26/16 ROS Review of Systems General / Constitutional: Weight Gain, No: Fever, Chills Eyes: No: Diploplia, Blurred Vision, Visual changes HENT: No: Headaches, Vertigo Cardiovascular: No: Irregular Rhythm, Chest Pain or Discomfort, Palpitations, Tachycardia Respiratory: No: Cough, Short of Breath, Wheezing Gastrointestinal: No: Nausea, Vomiting, Diarrhea, Abdominal Pain Genitourinary: Pelvic Pain, Discharge, No: Urgency, Frequency, Dysuria, Vaginal Bleeding Musculoskeletal: No: Limited ROM, Weakness Skin: No Rash, No Itching, No Dryness Neurologic: Seizures, No: Weakness, Dizziness, Syncope Psychiatric: Mood Disorder, No: Suicidal Ideations Endocrine: No: Heat Intolerance, Cold Intolerance (Emilio Moody MD, R2) General / Constitutional: No: Fever, Chills Eyes: No: Blurred Vision, Visual changes HENT: No: Headaches, Lightheadedness Cardiovascular: No: Chest Pain or Discomfort, Palpitations Respiratory: No: Cough, Short of Breath Gastrointestinal: Abdominal Pain (per hpi), No: Nausea, Vomiting, Diarrhea, Loss of Appetite Genitourinary: Discharge, No: Urgency, Frequency, Dysuria, Vaginal Bleeding Musculoskeletal: No: Limited ROM, Weakness Skin: No Rash, No Itching, No Lesions Neurologic: No: Focal Abnormalities, Coordination Problem (Caron Maya MD ) Physical Exam Physical Exam Narrative GENERAL: Well-nourished, well-developed patient. SKIN: Warm and dry. HEAD: Normocephalic and atraumatic. EYES: No scleral icterus. No injection or drainage. ENT: No nasal drainage noted. Mucous membranes pink. Airway patent. NECK: Supple, trachea midline. No JVD. CARDIOVASCULAR: Regular rate and rhythm without murmurs, gallops, or rubs. RESPIRATORY: Breath sounds equal bilaterally. No accessory muscle use. ABDOMEN/GI: Abdomen soft, non-tender, bowel sounds present, no rebound, no guarding Gravid to 26 weeks size GENITOURINARY: External Genitalia: intact and normal in appearance Cervix: [-] Dilatation: [-] Effacement: [-] Station: [-] Presentation: [-] Membranes: [intact or ruptured] Uterine Contractions: [-] FHT's: Category: [-] Baseline: [-] Reactive: [-] Variability: [-] Decels: [-] EXTREMITIES: No cyanosis or edema. BACK: Nontender without obvious deformity. No CVA tenderness. NEUROLOGICAL: Awake and alert. Motor and sensory grossly within normal limits. Five out of 5 muscle strength in all muscle groups. Normal speech. (Emilio Moody MD, R2) Exam Limitations: Poor Historian Vital Signs Date Time Temp Pulse Resp B/P (MAP) Pulse Ox O2 Delivery O2 Flow Rate FiO2 05/06/17 18:48 90 70/38 (49) 05/06/17 18:45 99.2 Narrative US: [id number] 26%tile normal growth cephalic posterior placenta grade 1-2, 3VC Normal amniotic fluid Cervical length 43mm No anomalies noted (Caron Maya MD) Data Data Data Vital Signs Reviewed: Yes (Emilio Moody MD, R2) Vital Signs Reviewed: Yes (Caron Maya MD) MDM MDM Medical Record Reviewed: Yes (Emilio Moody MD, R2) Medical Record Reviewed: Yes Narrative Course / MDM 26 weeks polysubstance abuse with recent flakka and cocaine, last today poor social situation high risk sexual behavior and at risk for STD malnutrition and dehydration seizure d/o baby with prior congenital heart disease Plan admit for observation d/w Dr. Hamilton, [facility] 26 weeks very limited PN has seen Dr. Hilario while incarcerated and 2 visits at [facility] records reviewed obtained Diagnostic US: normal growth Polysubstance Abuse Hx of drug abuse and ETOH usage this flakka and cocaine daily, last this am Poor social situation Homeless high risks sexual behavior - STD panel pending drug abuse, possible ETOH abuse hx of possible bipolar d/o malnourished and dehydrated - IV hydration consulted case management and psychiatry Seizure Disorder states she had been on Keptra but has not been taking last seizure 2 days ago? Will restart medication consult as needed (Caron Maya MD) Caron Maya MD May 06, 2017 20:29
[2017-05-06] MEDS ORDERED: ZOLPIDEM TARTRATE 5 MG TAB PO PRN (21:00)
[2017-05-06] MEDS: SODIUM CHLORIDE 0.9% FLUSH 10 ML FLUSH IV FLUSH SCH (21:00)
[2017-05-07] VITALS (20 sets, daily range): BP systolic 82–105; BP diastolic 47–72; PULSE 79–96; RESP 17–20; TEMP 98–98.4
[2017-05-07] MEDS: LACTATED RINGER'S 1000 ML INJ 1,000 ML IV SCH ×3 (03:00→18:29)
[2017-05-07 06:03] LABS: CHLAMYDIA PCR DETECTED (NOT DETECT); NEISSERIA PCR NOT DETECTED (NOT DETECT)
[2017-05-07] MEDS ORDERED: AZITHROMYCIN 250 MG TAB PO ONE (07:00)
[2017-05-07] MEDS: NITROFURANTOIN MONOHYD MACROCR 100 MG CAP PO SCH ×2 (08:15→18:24)
[2017-05-07] MEDS: MULTIVIT/MIN/PREN/FOL AC/IRON PRENATAL TAB PO SCH (08:15)
[2017-05-07] MEDS: SODIUM CHLORIDE 0.9% FLUSH 10 ML FLUSH IV FLUSH SCH ×2 (09:00→21:00)
[2017-05-07 13:27] LABS: RUBELLA IGG ANTIBODY 132.2 IU/mL (10.0-500.0); RUBELLA STATUS IMMUNE (IMMUNE)
[2017-05-07] MEDS ORDERED: diphenhydrAMINE HCL 50 MG/ML VIAL IV ONE (14:00)
[2017-05-07] MEDS ORDERED: LORazepam 2 MG/ML VIAL IV PRN (15:15)
[2017-05-07] MEDS: ACETAMINOPHEN 325 MG TAB PO PRN (15:16)
--- NOTE | 2017-05-07 15:50 | PD.PSY.CON ---
Provisional Diagnosis Admission Date May 06, 2017 at 16:44 [place] I. Polysubstance dependence, including Flacca, cocaine and alcohol, history of bipolar disorder [place] II. Unspecified personality disorder, R/O antisocial personality disorder History of Present Illness Service Psychiatry Consult Requested By Reason for Consult Polysubstance dependence Primary Care Physician No Primary Care Physician HPI The patient is a 31-year-old woman, single, homeless, unemployed, with a History of bipolar disorder, no previous psychiatric admissions, no previous suicidal attempts, substance dependence including cocaine, amphetamines, alcohol, she is on Abilify 10 mg prescribed by PCP, history of multiple incarcerations, medical history of seizures, she is now at 26 weeks who presents with cramping. Patient states she started noticing cramping earlier today. Also having some green discharge for the last 2 weeks. She thinks it might be due to not eating or drinking anything last 2 weeks. She is concerned that she has gonorrhea. Consulted to psychiatry potential management of addictions. On psychiatric evaluation today patient is irritable, oppositional and resistant. Once I introduced myself as a psychiatrist, patient stated that she is not here to see a psychiatrist. She says that she has terrible spirits with psychiatry in the past and she is not interested in psychiatric care. Patient reports that she has been doing okay with Abilify 10 mg prescribed by PCP. Patient denies depressive symptoms, denies valerie, psychosis, denies suicidal and homicidal ideation, denies visual and auditory hallucinations. No pressured speech, no paranoia, no delusions, no disorganized behavior or thoughts present at this moment. Towards daily use Flacca, crack cocaine and occasional alcohol. Patient says that she is not interested in detox or rehabilitation program. Patient clarifies that "is my choice to abuse drugs, I do not want any help". Review of Systems Constitutional: DENIES: Diaphoretic episodes, Fatigue, Fever, Weight gain, Weight loss, Chills, Dizziness, Change in appetite, Night Sweats Endocrine: DENIES: Abnorml menstrual pattern, Heat/cold intolerance, Polydipsia , Polyuria, Polyphagia Eyes: DENIES: Blurred vision, Diplopia, Eye inflammation, Eye pain, Vision loss , Photosensitivity, Double Vision Ears, nose, mouth, throat: DENIES: Tinnitus, Hearing loss, Vertigo, Nasal discharge, Oral lesions, Throat pain, Hoarseness, Ear Pain, Running Nose, Epistaxis, Sinus Pain, Toothache, Odynophagia Respiratory: DENIES: Apneas, Cough, Snoring, Wheezing, Hemoptysis, Sputum production, Shortness of breath Cardiovascular: DENIES: Chest pain, Palpitations, Syncope, Dyspnea on Exertion , PND, Lower Extremity Edema, Orthopnea, Claudication Gastrointestinal: DENIES: Abdominal pain, Black stools, Bloody stools, Constipation, Diarrhea, Nausea, Vomiting, Difficulty Swallowing, Anorexia Genitourinary: COMPLAINS OF: Vaginal discharge Musculoskeletal: DENIES: Joint pain, Muscle aches, Stiffness, Joint Swelling, Back pain, Neck pain Hematologic/lymphatic: DENIES: Bruising, Lymphadenopathy Immunologic/allergic: DENIES: Eczema, Urticaria Neurologic: DENIES: Abnormal gait, Headache, Localized weakness, Paresthesias, Seizures, Speech Problems, Tremor, Poor Balance Psychiatric: DENIES: Anxiety, Confusion, Mood changes, Depression, Hallucinations, Agitation, Suicidal Ideation, Homicidal Ideation, Delusions Past Family Social History Coded Allergies: Sulfa (Sulfonamide Antibiotics) (Unverified Allergy, Severe, HIVES, THROAT CLOSED, 03/17/17) UNKNOWN bee venom protein (honey bee) (Unverified Allergy, Severe, Anaphylaxis, ) penicillin G (Unverified Allergy, Severe, HIVES, THROAT CLOSED, 03/17/17) UNKNOWN *MDRO Multi-Drug Resistant Organism (Verified Allergy, Unknown, 10/14/16) MRSA Active Scripts Doxycycline Hyclate (Doxycycline Hyclate) 100 Mg Tab, 100 MG PO BID, #14 TAB Prov:Miguel Munguia MD 11/26/16 Current Medications Medications (Trade) Dose Ordered Sig/Kendra Route Start Time Stop Time Status Last Admin (Tylenol) 650 mg Q4H PRN PO 05/06/17 17:00 05/07/17 15:16 (Stuartnatal Plus 3 ) 1 tab DAILY PO 05/07/17 09:00 05/07/17 08:15 (Mag-Al Plus Susp Liq) 30 ml QID PRN PO 05/06/17 17:00 (NS Flush) 2 ml BID IV FLUSH 05/06/17 21:00 (NS Flush) 2 ml UNSCH PRN IV FLUSH 05/06/17 17:00 (Ambien) 5 mg HS PRN PO 05/06/17 21:00 (Zofran Odt) 4 mg Q6H PRN PO 05/06/17 17:00 Lactated Ringer's 1,000 ml @ 125 mls/hr Q8H IV 05/06/17 19:00 05/07/17 10:16 (Macrobid) 100 mg BIDPC PO 05/07/17 09:00 05/07/17 08:15 (Ativan Inj) 1 mg Q6H PRN IV 05/07/17 15:15 Family Psych History She denies family psychiatric history Social History Patient was born and raised in [place], she is homeless, she has multiple incarcerations, she is single, unemployed, her highest level of education is ninth grade Patient's Strengths (min. 2) Verbal communication Physical Exam No tremors, no EPS, no psychomotor agitation retardation Vital Signs Vital Signs Date Time Temp Pulse Resp B/P (MAP) Pulse Ox O2 Delivery O2 Flow Rate FiO2 05/07/17 15:00 18 05/07/17 14:50 79 91/57 (68) 05/07/17 08:00 98.0 Lab Results Test 05/06/17 18:20 05/06/17 19:40 05/07/17 08:20 Urine Color YELLOW Urine Turbidity CLOUDY Urine pH 6.0 Urine Specific [place] 1.028 Urine Protein TRACE mg/dL Urine Glucose (UA) 150 mg/dL Urine Ketones TRACE mg/dL Urine Occult Blood NEG Urine Nitrite NEG Urine Bilirubin NEG Urine Urobilinogen 8.0 MG/DL Urine Leukocyte Esterase LARGE Urine RBC 8 /hpf Urine WBC 48 /hpf Urine Squamous Epithelial Cells 5 /hpf Urine Amorphous Sediment RARE Urine Bacteria MANY /hpf Urine Mucus FEW /lpf Microscopic Urinalysis Comment CULTURE INDICATED Urine Opiates Screen NEG Urine Barbiturates Screen NEG Urine Amphetamines Screen NEG Urine Benzodiazepines Screen NEG Urine Cocaine Screen POS Urine Cannabinoids Screen NEG Chlamydia trachomatis DNA (PCR) DETECTED Neisseria gonorrhoeae DNA (PCR) NOT DETECTED White Blood Count 11.3 TH/MM3 Red Blood Count 3.55 MIL/MM3 Hemoglobin 11.3 GM/DL Hematocrit 32.9 % Mean Corpuscular Volume 92.7 FL Mean Corpuscular Hemoglobin 31.9 PG Mean Corpuscular Hemoglobin Concent 34.4 % Red Cell Distribution Width 13.4 % Platelet Count 196 TH/MM3 Mean Platelet Volume 8.3 FL Neutrophils (%) (Auto) 77.7 % Lymphocytes (%) (Auto) 14.8 % Monocytes (%) (Auto) 6.7 % Eosinophils (%) (Auto) 0.7 % Basophils (%) (Auto) 0.1 % Neutrophils # (Auto) 8.8 TH/MM3 Lymphocytes # (Auto) 1.7 TH/MM3 Monocytes # (Auto) 0.8 TH/MM3 Eosinophils # (Auto) 0.1 TH/MM3 Basophils # (Auto) 0.0 TH/MM3 CBC Comment DIFF FINAL Differential Comment Blood Urea Nitrogen 5 MG/DL Creatinine 0.66 MG/DL Random Glucose 115 MG/DL Total Protein 6.0 GM/DL Albumin 2.5 GM/DL Calcium Level 8.4 MG/DL Alkaline Phosphatase 77 U/L Aspartate Amino Transf (AST/SGOT) 18 U/L Alanine Aminotransferase (ALT/SGPT) 18 U/L Total Bilirubin 0.2 MG/DL Sodium Level 136 MEQ/L Potassium Level 3.1 MEQ/L Chloride Level 103 MEQ/L Carbon Dioxide Level 24.3 MEQ/L Anion Gap 9 MEQ/L Estimat Glomerular Filtration Rate 128 ML/MIN Rapid Plasma Reagin NON-REACTIVE Hepatitis A IgM Antibody NEGATIVE Hepatitis B Surface Antigen NEGATIVE Hepatitis B Core IgM Antibody NEGATIVE Hepatitis C Antibody NEGATIVE Rubella Immunity Screen IMMUNE Rubella Antibody, Quantitative 132.2 IU/mL Nasal Screen MRSA (PCR) MRSA NOT DETECTED Date/Time Source Procedure Growth Status 05/06/17 18:20 Urine Clean Catch Urine Culture - Preliminary Gram Negative Pasha Resulted Mental Status Examination Appearance: Dirty, Disheveled Consciousness: Alert Orientation: x4 Motor Activity: Normal gait Speech: Rapid Language: Adequate Fund of Knowledge: Adequate Attention and Concentration: Adequate Memory: Unremarkable Mood: Angry Affect: Irritable Thought Process & Associations: Intact Thought Content: Appropriate Hallucination Type: None Delusion Type: None Suicidal Ideation: No Suicidal Plan: No Suicidal Intention: No Homicidal Ideation: No Homicidal Plan: No Homicidal Intention: No Insight: Adequate Judgment: Adequate Assessment & Plan Problem List: (1) Polysubstance abuse ICD Codes: F19.10 - Other psychoactive substance abuse, uncomplicated Status: Chronic Assessment & Plan: At the moment of this evaluation the patient does not present any significant evidence of depressive symptoms, anxiety, valerie or psychosis. She denies suicidal ideation, homicidal ideation, visual and auditory hallucinations. The patient is especially oppositional and resistant to the psychiatric evaluation. Patient was highly motivated and educated about the importance of avoiding drugs especially during , also about the importance of engaging in treatment for drug use, but patient declined this kind of help. Patient says that she would continue taking Abilify 10 mg prescribed by PCP. Extensive support, motivation and psychoeducation provided. Patient does not meet criteria for psychiatric admission at this moment. No additional psychotropics recommended. Consult appreciated. Assessment & Plan Estimated LOS: Chano Crews MD May 07, 2017 15:50
[2017-05-08] VITALS (7 sets, daily range): BP systolic 84–105; BP diastolic 56–64; PULSE 73–80; RESP 18–20; TEMP 97.6
[2017-05-08] MEDS: ACETAMINOPHEN 325 MG TAB PO PRN ×2 (01:30→08:53)
[2017-05-08] MEDS: LACTATED RINGER'S 1000 ML INJ 1,000 ML IV SCH (04:00)
[2017-05-08] MEDS ORDERED: PREN29TA PO (08:47)
[2017-05-08] MEDS ORDERED: MACR100C2 PO (08:48)
--- NOTE | 2017-05-08 08:49 | HHI.DCPOC ---
Discharge Care Plan Diagnosis: (1) Gonorrhea (2) Goals to Promote Your Health * To prevent worsening of your condition and complications * To maintain your health at the optimal level Directions to Meet Your Goals Take your medications as prescribed Follow your dietary instruction Follow activity as directed Keep your appointments as scheduled Take your immunizations and boosters as scheduled If your symptoms worsen call your PCP, if no PCP go to Urgent Care Center or Emergency Room Smoking is Dangerous to Your Health. Avoid second hand smoke Call the 24-hour hour crisis hotline for domestic abuse at Emilio Moody MD, R2 May 08, 2017 08:49
[2017-05-08] MEDS: NITROFURANTOIN MONOHYD MACROCR 100 MG CAP PO SCH (08:53)
[2017-05-08] MEDS: MULTIVIT/MIN/PREN/FOL AC/IRON PRENATAL TAB PO SCH (08:53)
[2017-05-08] MEDS: SODIUM CHLORIDE 0.9% FLUSH 10 ML FLUSH IV FLUSH SCH (09:00)
[2017-05-11 09:46] LABS: BATH SALTS (MDPV) UR NEG (NEG); ECSTASY (MDMA) UR NEG (NEG); GABAPENTIN UR NEG (NEG); HEROIN (6-ACETYLMORPHINE) UR NEG (NEG); HYDROMORPHONE U NEG (NEG); K2 SPICE UR NEG (NEG); OBMETHADONE UR NEG (NEG); PHENCYCLIDINE URINE NEG (NEG)
== END 2017-05-08 10:27 | disposition home or self-care (01) ==
LOC: HOBED 14:12 → H2EA 16:44
PROVIDERS: ADMIT Obstetrics & Gynecology; ATTEND Obstetrics & Gynecology
DX: O98.212 Gonorrhea complicating pregnancy, second trimester (principal); O99.322 Drug use complicating pregnancy, second trimester; F14.10 Cocaine abuse, uncomplicated; O23.42 Unspecified infection of urinary tract in pregnancy, second trimester; B96.20 Unspecified Escherichia coli [E. coli] as the cause of diseases classified elsewhere; O99.352 Diseases of the nervous system complicating pregnancy, second trimester; G40.909 Epilepsy, unspecified, not intractable, without status epilepticus; O99.512 Diseases of the respiratory system complicating pregnancy, second trimester; J45.909 Unspecified asthma, uncomplicated; O99.332 Smoking (tobacco) complicating pregnancy, second trimester; Z3A.26 26 weeks gestation of pregnancy; Z59.0 Homelessness
CPT/HCPCS: 76816; 80053; 80074; 80307; 81001; 85025; 86592; 86762; 87077; 87086; 87186; 87491; 87591; 87641; 96374; 96375; 99285; G0378; G0481; J1200; J2060; J7120

== ENCOUNTER 2017-05-25 04:24 | Emergency (ER) | payer MEDICAID ==
[~2017-05-25 04:24] MED LIST changes: -DOXY100T PO; +MACR100C2 PO; +PREN29TA PO
--- NOTE | 2017-05-25 06:16 | PD ---
HPI Chief Complaint pain down below , vaginal irritation and odor, think I have chlamydia Date Seen: May 25, 2017 Time Seen: 06:00 Travel History International Travel<30 Days: No Contact w/Intl Traveler<30Days: No Known Affected Area: No History of Present Illness HPI 31-year-old 5 para 3 at 29 weeks gestation with an EDC of August 12 which was established by uncertain criteria but confirmed by 26 week ultrasound [facility]. She reports several days of vaginal irritation with odor. She is concerned that she has chlamydia again which she was treated for at 26 weeks during hospitalization here. She describes suprapubic pain without dysuria hematuria or frequency. She states pain is constant and has been there for a couple of weeks. She denies bleeding, leakage of fluid or contractions. She reports normal movement. Patient has a history of polysubstance abuse and admits to Flack use last night , marijuana last night and possibly crack cocaine. Weeks Gestation: 29 History Past Medical History Narrative Medical History of seizure disorder for which she was prescribed Keppra but she has not been taking this medication. She denies any recent seizure activity. Polysubstance abuse Obstetric History Obstetric History 3 prior vaginal deliveries, 2007, 2009 and 2011 One miscarriage Past Surgical History Surgical History: No Previous Surgery Family History Family History: Negative Social History Alcohol Use: Yes Tobacco Use: Yes Substance Abuse: Yes Allergies-Medications (Allergen,Severity, Reaction): Coded Allergies: Sulfa (Sulfonamide Antibiotics) (Unverified Allergy, Severe, HIVES, THROAT CLOSED, 03/17/17) UNKNOWN bee venom protein (honey bee) (Unverified Allergy, Severe, Anaphylaxis, ) penicillin G (Unverified Allergy, Severe, HIVES, THROAT CLOSED, 03/17/17) UNKNOWN *MDRO Multi-Drug Resistant Organism (Verified Allergy, Unknown, 10/14/16) MRSA Home Meds Active Scripts Nitrofurantoin Monohydrate Macrocrystals (Macrobid) 100 Mg Capsule, 100 MG PO DAILY for Infection, #30 CAP 0 Refills Prov:Emilio Moody MD, R2 05/08/17 Vit-Iron Carbonyl ( Plus Iron 29-1 mg) 29 Mg Iron-1 Mg Tab, 1 TAB PO DAILY, #30 TAB Prov:Emilio Moody MD, R2 10/6/17 Review of Systems Except as stated in HPI: all other systems reviewed are Neg Physical Exam Exam Limitations: Poor Historian Narrative GENERAL: Well-nourished, well-developed patient. SKIN: Warm and dry. HEAD: Normocephalic and atraumatic. EYES: No scleral icterus. No injection or drainage. ENT: No nasal drainage noted. Mucous membranes pink. Airway patent. NECK: Supple, trachea midline. No JVD. CARDIOVASCULAR: Regular rate and rhythm without murmurs, gallops, or rubs. RESPIRATORY: Breath sounds equal bilaterally. No accessory muscle use. ABDOMEN/GI: Abdomen soft, non-tender, bowel sounds present, no rebound, no guarding Gravid to [-] weeks size Fundal Height: [-] GENITOURINARY: External Genitalia: intact and normal in appearance BUS glands: [Negative-] the vagina is noninflamed and has minimal discharge. There is a condom in the upper vagina. Cervix: [-Noninflamed] Dilatation: [-Closed] Effacement: [-Long] Station: [-] Presentation: [-] Membranes: [intact ] Uterine Contractions: [None-] FHT's: Category: [1-] Baseline: [-135] Reactive: [yes-] Variability: [-] Decels: [-] EXTREMITIES: No cyanosis or edema. BACK: Nontender without obvious deformity. No CVA tenderness. NEUROLOGICAL: Awake and alert. Mildly agitated . Motor and sensory grossly within normal limits. Five out of 5 muscle strength in all muscle groups. Normal speech. Data Data Orders Orders Vital Signs (Adult) .ON ADMISSION (05/25/17 05:53) ^ Labor Status (05/25/17 05:53) Urinalysis - C+S If Indicated (05/25/17 05:53) Diet Regular Basic (05/25/17 Breakfast) Type And Screen (05/25/17 05:53) Wet Prep Profile (05/25/17 05:53) Gc And Chlamydia Pcr (05/25/17 05:53) Drug Screen, Random Urine (05/25/17 05:53) MDM Medical Record Reviewed: Yes Narrative Course / MDM Assessment: 29 week intrauterine in a homeless polysubstance abuser with minimal care. #2 retained foreign body in the vagina-removed, #3 history of seizure disorder with noncompliance with medication, #[id number] Plan: Condom was removed from her vagina. Type and screen for RhoGAM evaluation was performed and she is O+ Wet prep, GC chlamydia neg, drug screen Remainder of her labs are current from her 26 week visit. Ceftriaxone 2 g IM given due to the patient's inability to obtain outpatient oral medication for suspected UTI. [facility] information was shared with the patient for follow-up. Instructed to refrain from drug use. Diagnosis Diagnosis: Primary Impression: 29 weeks gestation of Additional Impressions: UTI (urinary tract infection) Polysubstance abuse Disposition: 01 DISCHARGE HOME Condition: Good Joshua Galdamez MD May 25, 2017 06:16
[2017-05-25 06:20] LABS: BACTERIA, URINE MOD /hpf; BLOOD, URINE NEG (NEG); COMMENT (UR) CULTURE INDICATED; CULTURE IF INDICATED CULTURE INDICATED; GLUCOSE,URINE NEG (NEG); HYALINE CAST, URINE 1 /lpf (RARE); KETONE, URINE 10 mg/dL (NEG); MUCUS URINE FEW /lpf (OCC); NITRITE,URINE NEG (NEG); SQUAMOUS EPITHELIAL CELL URINE <1 /hpf (0-5); TRANSITIONAL EPI CELLS, URINE <1 /hpf; URINE COLOR YELLOW (YELLW/STRAW)
[2017-05-25 07:36] VITALS: BP 99/58; PULSE 88
[2017-05-25 07:45] VITALS: RESP 17
[2017-05-25] MEDS ORDERED: LIDOCAINE HCL 1% 50 ML VIAL ONE (09:30)
[2017-05-25 09:55] LABS: CHLAMYDIA PCR NOT DETECTED (NOT DETECT); NEISSERIA PCR NOT DETECTED (NOT DETECT)
== END 2017-05-25 10:30 | disposition home or self-care (01) ==
LOC: HOBED 04:24
DX: O23.43 Unspecified infection of urinary tract in pregnancy, third trimester (principal); N89.8 Other specified noninflammatory disorders of vagina; F19.10 Other psychoactive substance abuse, uncomplicated; B96.20 Unspecified Escherichia coli [E. coli] as the cause of diseases classified elsewhere; Z79.899 Other long term (current) drug therapy; Z3A.29 29 weeks gestation of pregnancy; Z72.0 Tobacco use; Z59.0 Homelessness
CPT/HCPCS: 80307; 81001; 86850; 86900; 86901; 87077; 87086; 87186; 87210; 87491; 87591; 96372; 99284; J0696

== ENCOUNTER 2017-06-11 19:26 | Emergency (ER) | payer MEDICAID, OTHER ==
--- NOTE | 2017-06-11 20:32 | PD ---
HPI Chief Complaint Abdominal pain and greenish vaginal discharge that causes discomfort and itching Date Seen: Jun 11, 2017 Time Seen: 20:25 Travel History International Travel<30 Days: No Contact w/Intl Traveler<30Days: No Known Affected Area: No History of Present Illness HPI Patient is a 32-year-old black female A1 L2 at 31 weeks with little true care other than early visits that the documented by ultrasound her gestational age, she presents complaining of abdominal cramps and a greenish vaginal discharge with itching and irritation and discomfort. Denies bleeding. Baby is active. heart rate tracing is reactive. No contractions seen. Patient is homeless and chronic drug abuser, she is some mental deficits and has missed most any scheduled visits however she's had several ultrasounds 1 at 11 weeks and 1 at 24 weeks. The patient saw Dr. Hilario once in her office during this Weeks Gestation: 31 Para: 3 : 5 History Obstetric History Obstetric History She's had 3 vaginal deliveries and one baby to the last one of congenital heart defect at the age of 4 months Social History Alcohol Use: Yes Tobacco Use: Yes Substance Abuse: Yes Allergies-Medications (Allergen,Severity, Reaction): Coded Allergies: Sulfa (Sulfonamide Antibiotics) (Unverified Allergy, Severe, HIVES, THROAT CLOSED, 03/17/17) UNKNOWN bee venom protein (honey bee) (Unverified Allergy, Severe, Anaphylaxis, ) penicillin G (Unverified Allergy, Severe, HIVES, THROAT CLOSED, 03/17/17) UNKNOWN *MDRO Multi-Drug Resistant Organism (Verified Allergy, Unknown, 10/14/16) MRSA Home Meds Active Scripts Nitrofurantoin Monohydrate Macrocrystals (Macrobid) 100 Mg Capsule, 100 MG PO DAILY for Infection, #30 CAP 0 Refills Prov:Emilio Moody MD, R2 05/08/17 Vit-Iron Carbonyl ( Plus Iron 29-1 mg) 29 Mg Iron-1 Mg Tab, 1 TAB PO DAILY, #30 TAB Prov:Emilio Moody MD, R2 05/08/17 Review of Systems General / Constitutional: No: Fever, Weight Gain, Chills, Other Eyes: No: Diploplia, Blurred Vision, Visual changes, Pain, Photophobia HENT: No: Headaches, Vertigo, Lightheadedness Cardiovascular: No: Irregular Rhythm, Chest Pain or Discomfort, Palpitations, Tachycardia, Syncope, Varicosities, Edema, Cyanosis Respiratory: No: Cough, Short of Breath, Other Gastrointestinal: Abdominal Pain, No: Nausea, Vomiting, Diarrhea Genitourinary: No: Decreased Urinary Output, Oliguria Musculoskeletal: No: Limited ROM, Weakness, Cramping, Edema, Pain Skin: No Rash, No Itching, No Dryness, No Lumps, No Change in Pigmentation, No Change in Nails, No Alopecia, No Lesions Neurologic: No: Weakness, Dizziness, Syncope, Focal Abnormalities, Coordination Problem, Headache, Slurred Speech, Seizures Psychiatric: No: Depression, Suicidal Ideations, Homicidal Ideation Endocrine: No: Heat Intolerance, Cold Intolerance, Polydipsia, Polyuria, Other Physical Exam Narrative GENERAL: Well-nourished, well-developed patient. SKIN: Warm and dry. HEAD: Normocephalic and atraumatic. EYES: No scleral icterus. No injection or drainage. ENT: No nasal drainage noted. Mucous membranes pink. Airway patent. NECK: Supple, trachea midline. No JVD. CARDIOVASCULAR: Regular rate and rhythm without murmurs, gallops, or rubs. RESPIRATORY: Breath sounds equal bilaterally. No accessory muscle use. BREASTS: Bilateral exam showed no masses , no retractions, no nipple discharge. ABDOMEN/GI: Abdomen soft, non-tender, bowel sounds present, no rebound, no guarding Gravid to [-31] weeks size Fundal Height: [-31] GENITOURINARY: External Genitalia: intact and normal in appearance. As a slight redness to her labia minora Vacuum exam done which showed a greenish white discharge the cervical os and in the posterior fornix of a small amount nothing extensive, wet prep was done Cervix: [-] Dilatation: [-Closed] Effacement: [-0] Station: [-3] Membranes: [intact ] Uterine Contractions: [-none] FHT's: Category: [-1] Baseline: [-133] Reactive: [-yes] Variability: [mod-] Decels: 0 EXTREMITIES: No cyanosis or edema. BACK: Nontender without obvious deformity. No CVA tenderness. NEUROLOGICAL: Awake and alert. Motor and sensory grossly within normal limits. Five out of 5 muscle strength in all muscle groups. Normal speech. Data Data Orders Orders Vital Signs (Adult) .ON ADMISSION (06/11/17 20:19) ^ Labor Status (06/11/17 20:19) Urinalysis - C+S If Indicated (06/11/17 20:19) Diet Liquid (06/12/17 Breakfast) Ob/Psych Drug Screen, Urine (06/11/17 20:19) Wet Prep Profile (06/11/17 20:25) MDM Interpretation(s) Patient is 32-year-old black female at 31 weeks who presents with cramps and greenish vaginal discharge. She has a history of drug abuse and is currently homeless heart rate reactive and no contractions, cervix is closed, wet prep was negative but on exam there is a discharge noted in the vagina that' s consistent with cervicitis /vaginitis, and urinalysis positive for bacteria and RBCs Plan Plan to place patient on antibiotics she is allergic to penicillin but can get the keflex. We'll start keflex 500 mg bid , and a vaginal of 1 time application of Monistat cream Diagnosis Diagnosis: Primary Impression: 31 weeks gestation of Additional Impressions: UTI (urinary tract infection) Vaginitis affecting in third trimester, antepartum Disposition: 01 DISCHARGE HOME Condition: Stable Scripts Tioconazole Vaginal (Monistat 1-Day Vaginal) 6.5% Oint 1 APPL VAGINAL HS for Infection, #1 APPL 0 Refills Prov: Medardo Mcclain II, MD 06/11/17 Cephalexin (Keflex) 500 Mg Cap 500 MG PO Q8H for Infection for 7 Days, #21 CAP 0 Refills Prov: Medardo Mcclain II, MD 06/11/17 Medardo Mcclain II, MD Jun 11, 2017 20:32
[2017-06-11 21:03] LABS: BACTERIA, URINE MANY /hpf; BLOOD, URINE SMALL (NEG); COMMENT (UR) CULTURE INDICATED; CULTURE IF INDICATED CULTURE INDICATED; GLUCOSE,URINE NEG (NEG); KETONE, URINE NEG (NEG); MUCUS URINE FEW /lpf (OCC); NITRITE,URINE NEG (NEG); SQUAMOUS EPITHELIAL CELL URINE 50 /hpf (0-5); TRANSITIONAL EPI CELLS, URINE 1 /hpf; URINE COLOR YELLOW (YELLW/STRAW)
[2017-06-11 21:37] VITALS: RESP 18
[2017-06-11] MEDS ORDERED: CEPH-460 PO (21:41)
[2017-06-11] MEDS ORDERED: TIOC1OIN3 VAGINAL (21:42)
[2017-06-17 08:10] LABS: BATH SALTS (MDPV) UR NEG (NEG); ECSTASY (MDMA) UR NEG (NEG); HEROIN (6-ACETYLMORPHINE) UR NEG (NEG); K2 SPICE UR NEG (NEG); OBGABAPENTIN UR NEG (NEG); OBHYDROMORPHONE U NEG (NEG); OBMETHADONE UR NEG (NEG); PHENCYCLIDINE URINE NEG (NEG)
== END 2017-06-11 22:26 | disposition home or self-care (01) ==
LOC: HOBED 19:26
DX: O23.43 Unspecified infection of urinary tract in pregnancy, third trimester (principal); O23.593 Infection of other part of genital tract in pregnancy, third trimester; N76.0 Acute vaginitis; B96.89 Other specified bacterial agents as the cause of diseases classified elsewhere; Z3A.31 31 weeks gestation of pregnancy; Z59.0 Homelessness; Z72.0 Tobacco use; Z79.899 Other long term (current) drug therapy; Z88.2 Allergy status to sulfonamides
CPT/HCPCS: 59025; 80307; 81001; 87086; 87210; 99284; G0481

== ENCOUNTER 2017-06-13 21:35 | Emergency (ER) | payer OTHER ==
[~2017-06-13] VITALS: Ht 157.5 cm; Wt 60.0 kg
[~2017-06-13 21:35] MED LIST changes: +CEPH-460 PO; +TIOC1OIN3 VAGINAL
[2017-06-13 21:37] VITALS: BP 116/71; PULSE 89; RESP 16; TEMP 98.1; O2SAT 99
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
[2017-06-13 23:47] LABS: BACTERIA, URINE RARE /hpf; BLOOD, URINE NEG (NEG); COMMENT (UR) CULT NOT INDICATED; CULTURE IF INDICATED CULT NOT INDICATED; GLUCOSE,URINE NEG (NEG); KETONE, URINE TRACE mg/dL (NEG); NITRITE,URINE NEG (NEG); SQUAMOUS EPITHELIAL CELL URINE 3 /hpf (0-5); URINE COLOR YELLOW (YELLW/STRAW)
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
== END 2017-06-14 00:05 | disposition home or self-care (01) ==
LOC: NEPC 21:35 → HOBED 06-14 00:05
DX: O9A.413 Sexual abuse complicating pregnancy, third trimester (principal); R10.30 Lower abdominal pain, unspecified; O23.43 Unspecified infection of urinary tract in pregnancy, third trimester; O99.343 Other mental disorders complicating pregnancy, third trimester; F31.9 Bipolar disorder, unspecified; F43.10 Post-traumatic stress disorder, unspecified; F90.9 Attention-deficit hyperactivity disorder, unspecified type; Z3A.30 30 weeks gestation of pregnancy; Y07.59 Other non-family member, perpetrator of maltreatment and neglect
CPT/HCPCS: 81001; 99284

== ENCOUNTER 2017-07-01 11:22 | Emergency (ER) | payer OTHER ==
--- NOTE | 2017-07-01 12:21 | PD ---
HPI Chief Complaint Vaginal pain Date Seen: Jul 01, 2017 Travel History International Travel<30 Days: No Contact w/Intl Traveler<30Days: No Known Affected Area: No History of Present Illness HPI Patient is a 32-year-old at 34/0 weeks gestation that presents to the [facility] ED with a chief complaint of vaginal pain for the last 1-2 weeks. Patient states that anytime she walks short distances or stands, she feels pain in the sides of her vagina that she describes as 10/10 sharp pain. Patient was recently seen in the ED on 06/11/17 where she was found to have a urinary tract infection and was sent home with a prescription for cephalexin and Monistat vaginal ointment. Patient states that she took the UTI medication as prescribed. She continues to have copious vaginal discharge that she states is non-foul smelling. She also has occasional headaches but denies other symptoms. She is not having contractions, has not had leakage or gush of fluid, and has been feeling her baby move. Additionally, patient would like a prescription for Keppra which she states that she ran out of. She had a seizure yesterday. History Past Medical History Narrative Medical Seizures Asthma - has an albuterol nebulizer Obstetric History Obstetric History 3 vaginal deliveries, all induced One miscarriage 2 living children 1 child of a heart defect at the age of 4 months Past Surgical History Surgical History: No Previous Surgery Family History Narrative Family History Diabetes runs in her family Social History Alcohol Use: No Tobacco Use: Yes (smokes 2-3 cigarettes per day) Substance Abuse: No (previous significant history. 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 Home Meds Active Scripts Metronidazole (Flagyl) 250 Mg Tab, 250 MG PO TID for TRICHOMONIASIS INFECTION, # 30 TAB 3 Refills Prov:Teresa Fuentes MD R2 07/01/17 Levetiracetam (Keppra) 500 Mg Tab, 500 MG PO BID for Control Seizures, #60 TAB 0 Refills Prov:Teresa Fuentes MD R2 07/01/17 Tioconazole Vaginal (Monistat 1-Day Vaginal) 6.5% Oint, 1 APPL VAGINAL HS for Infection, #1 APPL 0 Refills Prov:Medardo Mcclain II, MD 06/11/17 Cephalexin (Keflex) 500 Mg Cap, 500 MG PO Q8H for Infection for 7 Days, #21 CAP 0 Refills Prov:Medardo Mcclain II, MD 06/11/17 Nitrofurantoin Monohydrate Macrocrystals (Macrobid) 100 Mg Capsule, 100 MG PO DAILY for Infection, #30 CAP 0 Refills Prov:Emilio Moody MD, R2 05/08/17 Vit-Iron Carbonyl ( Plus Iron 29-1 mg) 29 Mg Iron-1 Mg Tab, 1 TAB PO DAILY, #30 TAB Prov:Emilio Moody MD, R2 05/08/17 Review of Systems Except as stated in HPI: all other systems reviewed are Neg Physical Exam Narrative GENERAL: Well-nourished, well-developed patient. SKIN: Warm and dry. HEAD: Normocephalic and atraumatic. EYES: No scleral icterus. No injection or drainage. ENT: No nasal drainage noted. Mucous membranes pink. Airway patent. NECK: Supple, trachea midline. No JVD. CARDIOVASCULAR: Regular rate and rhythm without murmurs, gallops, or rubs. RESPIRATORY: Breath sounds equal bilaterally. No accessory muscle use. ABDOMEN/GI: Abdomen soft, non-tender, bowel sounds present, no rebound, no guarding Gravid abdomen GENITOURINARY: External Genitalia: intact and normal in appearance Cervix: Posterior Dilatation: 0cm by speculum exam Uterine Contractions: None PELVIC EXAM: Normally developed genitalia with no external lesions or eruptions. Vagina and cervix full of copious, thick, yellow discharge. OS patent. Swollen-appearing strawberry cervix. No cystocele. No foul smell. FHT's: Category: I Baseline: 125 Reactive: Up to 155 Variability: Moderate Decels: None EXTREMITIES: No cyanosis or edema. NEUROLOGICAL: Awake and alert. Motor and sensory grossly within normal limits. Five out of 5 muscle strength in all muscle groups. Normal speech. Data Data Vital Signs Reviewed: Yes Orders Orders Vital Signs (Adult) .ON ADMISSION (07/01/17 12:19) ^ Labor Status (07/01/17 12:19) Urinalysis - C+S If Indicated (07/01/17 12:19) ^ Non Stress Test (07/01/17 12:19) ^ Hydration (07/01/17 12:19) Wet Prep Profile (07/01/17 12:19) Gc And Chlamydia Pcr (07/01/17 12:19) Drug Screen, Random Urine (07/01/17 12:19) MDM Medical Record Reviewed: Yes Interpretation(s) 32 y/o presents with vaginal trichomonas infection Plan -Treat Trichomonas infection with Flagyl 250 mg 3 times a day 7 days -Will also treat patient's sexual partner with 2 g 1 time dose of Flagyl consisting of eight 250 mg tablets -Also prescribed 30 day supply of Keppra. Patient needs to follow-up with a primary care provider Diagnosis Diagnosis: Primary Impression: Trichomonal vaginitis during in third trimester Additional Impressions: Vaginal pain Seizure disorder during in third trimester Disposition: 01 DISCHARGE HOME Condition: Stable Scripts Metronidazole (Flagyl) 250 Mg Tab 250 MG PO TID for TRICHOMONIASIS INFECTION, #30 TAB 0 Refills Prov: Teresa Fuentes MD R2 07/01/17 Levetiracetam (Keppra) 500 Mg Tab 500 MG PO BID for Control Seizures, #60 TAB 3 Refills Prov: Teresa Fuentes MD R2 07/01/17 Patient Instructions: Early Labor Signs (ED), Movement (ED), Abdominal Pain in (ED) Teresa Fuentes MD R2 Jul 01, 2017 12:21
[2017-07-01] MEDS ORDERED: LEVE500 PO ×2 (12:22→13:46)
[2017-07-01] MEDS ORDERED: METR250 PO ×3 (13:31→13:46)
[2017-07-01 13:41] LABS: BLOOD, URINE NEG (NEG); GLUCOSE,URINE 250 mg/dL (NEG); KETONE, URINE NEG (NEG); NITRITE,URINE NEG (NEG); URINE COLOR YELLOW (YELLW/STRAW)
[2017-07-01 13:45] LABS: BACTERIA, URINE RARE /hpf; COMMENT (UR) CULT NOT INDICATED; CULTURE IF INDICATED CULT NOT INDICATED; RBC, URINE 0-3 /hpf (0-3)
[2017-07-01 15:05] LABS: CHLAMYDIA PCR DETECTED (NOT DETECT); NEISSERIA PCR NOT DETECTED (NOT DETECT)
== END 2017-07-01 13:55 | disposition home or self-care (01) ==
LOC: HOBED 11:22
DX: O98.313 Other infections with a predominantly sexual mode of transmission complicating pregnancy, third trimester (principal); A59.01 Trichomonal vulvovaginitis; G40.909 Epilepsy, unspecified, not intractable, without status epilepticus; J45.909 Unspecified asthma, uncomplicated; O99.333 Smoking (tobacco) complicating pregnancy, third trimester; Z79.899 Other long term (current) drug therapy; Z88.0 Allergy status to penicillin; Z88.2 Allergy status to sulfonamides
CPT/HCPCS: 59025; 80307; 81001; 87210; 87491; 87591

== ENCOUNTER 2017-07-06 13:33 | Emergency (ER) | payer OTHER ==
[~2017-07-06 13:33] MED LIST changes: +LEVE500 PO; +METR250 PO
[2017-07-06] MEDS ORDERED: ACETAMINOPHEN 325 MG TAB PO ONE (14:30)
--- NOTE | 2017-07-06 14:37 | PD ---
HPI Chief Complaint sharp abdominal pains Date Seen: Jul 06, 2017 Time Seen: 13:45 Travel History International Travel<30 Days: No Contact w/Intl Traveler<30Days: No Known Affected Area: No History of Present Illness HPI Patient is a 32-year-old at 34/5 weeks gestation that presents to the [facility] ED with a chief complaint of sharp abdominal pains for the last 1-2 weeks. Patient states that anytime she walks short distances or stands, she feels pain in the sides of her vagina that she describes as 10/10 sharp pain. Patient was recently seen in the ED on 06/11/17 where she was found to have a urinary tract infection and was sent home with a prescription for cephalexin and Monistat vaginal ointment. On 07/01/17 she had a trichomonas infection and she and her partner were treated. Patient and her partner state they took medication as prescribed. Pt states she is also taking Keppra prescribed last visit. She also has occasional headaches but denies other symptoms. She is not having contractions, has not had leakage or gush of fluid, and has been feeling her baby move. Seizures are controlled. She is concerned about her baby's heart as her last baby in 2014 from a congenital heart defect at 4 months of life. Denies CP, SOB, N/V/D, and DVT pain, but has concerns about being constipated. Weeks Gestation: 34 (and 5 days) Para: 3 : 5 Miscarriage: 1 : 0 History Past Medical History Narrative Medical Seizures - on Keppra Asthma - on albuterol Obstetric History Obstetric History 3 vaginal deliveries, all induced One miscarriage 2 living children 1 child of a heart defect at the age of 4 months Past Surgical History Surgical History: No Previous Surgery Family History Narrative Family History Family hx DM Social History Alcohol Use: No Tobacco Use: Yes Substance Abuse: No Allergies-Medications (Allergen,Severity, Reaction): Coded Allergies: Sulfa (Sulfonamide Antibiotics) (Unverified Allergy, Severe, HIVES, THROAT CLOSED, 06/13/17) UNKNOWN bee venom protein (honey bee) (Unverified Allergy, Severe, Anaphylaxis, ) penicillin G (Unverified Allergy, Severe, HIVES, THROAT CLOSED, 06/13/17) UNKNOWN *MDRO Multi-Drug Resistant Organism (Verified Allergy, Unknown, 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 Home Meds Active Scripts Metronidazole (Flagyl) 250 Mg Tab, 250 MG PO TID for TRICHOMONIASIS INFECTION, # 30 TAB 0 Refills Prov:Teresa Fuentes MD R2 07/01/17 Levetiracetam (Keppra) 500 Mg Tab, 500 MG PO BID for Control Seizures, #60 TAB 3 Refills Prov:Teresa Fuentes MD R2 07/01/17 Tioconazole Vaginal (Monistat 1-Day Vaginal) 6.5% Oint, 1 APPL VAGINAL HS for Infection, #1 APPL 0 Refills Prov:Medardo Mcclain II, MD 06/11/17 Cephalexin (Keflex) 500 Mg Cap, 500 MG PO Q8H for Infection for 7 Days, #21 CAP 0 Refills Prov:Medardo Mcclain II, MD 06/11/17 Nitrofurantoin Monohydrate Macrocrystals (Macrobid) 100 Mg Capsule, 100 MG PO DAILY for Infection, #30 CAP 0 Refills Prov:Emilio Moody MD, R2 05/08/17 Vit-Iron Carbonyl ( Plus Iron 29-1 mg) 29 Mg Iron-1 Mg Tab, 1 TAB PO DAILY, #30 TAB Prov:Emilio Moody MD, R2 05/08/17 Discontinued Scripts Metronidazole (Flagyl) 250 Mg Tab, 250 MG PO TID for TRICHOMONIASIS INFECTION, # 30 TAB 0 Refills Prov:Teresa Fuentes MD R2 07/01/17 Review of Systems General / Constitutional: No: Fever, Chills Eyes: No: Diploplia HENT: Headaches Cardiovascular: No: Chest Pain or Discomfort, Palpitations Respiratory: No: Short of Breath Gastrointestinal: Abdominal Pain, No: Nausea, Vomiting Genitourinary: No: Urgency, Frequency Neurologic: Seizures Physical Exam Narrative GENERAL: Well-nourished, well-developed patient a little agitated and anxious. SKIN: Warm and dry. No rash or lesions. HEAD: Normocephalic and atraumatic. EYES: No scleral icterus. No injection or drainage. EOMI. ENT: No nasal drainage noted. Mucous membranes pink. Airway patent. NECK: Supple, trachea midline. No JVD. CARDIOVASCULAR: Regular rate and rhythm without murmurs, gallops, or rubs. RESPIRATORY: Breath sounds equal bilaterally. No accessory muscle use. ABDOMEN/GI: Abdomen soft, non-tender, bowel sounds present, no rebound, no guarding Gravid to 35 weeks size Fundal Height: 35cm GENITOURINARY: External Genitalia: intact and normal in appearance On speculum exam, reduced minimal to moderate yellowish-white vaginal discharge from previous exam on 07/01/17 Cervix: closed and fixed Dilatation: [-] Effacement: [-] Station: [-] Presentation: vtx Membranes: intact Uterine Contractions: none FHT's: Category: 1 Baseline: 125 Reactive: yes Variability: moderate Decels: none EXTREMITIES: No cyanosis or edema. BACK: Nontender without obvious deformity. NEUROLOGICAL: Awake and alert. Motor and sensory grossly within normal limits. Five out of 5 muscle strength in all muscle groups. Normal speech. Data Data Vital Signs Reviewed: Yes [facility] Medical Record Reviewed: Yes Narrative Course / MDM 32YO @ 34/5 weeks presents for sharp abdominal pains w/o discharge or contractions and wanting to get an OB US for concerns about her baby's heart. PLAN: -OB US showing normal IUP with a four-chambered heart appearing grossly normal to examination -Cervical exam showing reduced discharge s/p taking Flagyl as prescribed at visit on 07/01 -Taking Keppra as prescribed on visit 07/01 - tracing Cat 1, reactive, moderate, BL 125 with no decels Diagnosis Diagnosis: Primary Impression: Abdominal cramping affecting Additional Impression: Vaginitis affecting in third trimester, antepartum Disposition: 01 DISCHARGE HOME Condition: Stable Yosvany Otoole MD R1 Jul 06, 2017 14:37
== END 2017-07-06 14:49 | disposition home or self-care (01) ==
LOC: HOBED 13:33
DX: O23.593 Infection of other part of genital tract in pregnancy, third trimester (principal); N76.0 Acute vaginitis; R51 Headache; R56.9 Unspecified convulsions; O99.513 Diseases of the respiratory system complicating pregnancy, third trimester; J45.909 Unspecified asthma, uncomplicated; O99.333 Smoking (tobacco) complicating pregnancy, third trimester; Z3A.34 34 weeks gestation of pregnancy
CPT/HCPCS: 59025; 76815

== ENCOUNTER 2017-07-24 01:56 | Emergency (ER) | payer OTHER ==
--- NOTE | 2017-07-24 02:36 | PD ---
HPI Chief Complaint Vaginal bleeding Date Seen: Jul 24, 2017 Time Seen: 02:25 Travel History International Travel<30 Days: No Contact w/Intl Traveler<30Days: No Known Affected Area: No History of Present Illness HPI Patient is 32-year-old black female well known to our OB ED was now 37 weeks and 6 days 5 para 3 who presents with vaginal spotting noted this evening. She went to the bathroom and saw a lot of blood in the toilet. Denies leakage of fluid or continued bleeding. No contractions, heart rate tracing is reactive. Patient says she needs to leave because she's has to get up early in go to rehabilitation and [facility] to get checked in tomorrow Weeks Gestation: 37 Para: 3 : 5 History Obstetric History Obstetric History 3 vaginal deliveries and one early loss Social History Alcohol Use: Yes Tobacco Use: Yes Substance Abuse: Yes Allergies-Medications (Allergen,Severity, Reaction): Coded Allergies: Sulfa (Sulfonamide Antibiotics) (Unverified Allergy, Severe, HIVES, THROAT CLOSED, 06/13/17) UNKNOWN bee venom protein (honey bee) (Unverified Allergy, Severe, Anaphylaxis, ) penicillin G (Unverified Allergy, Severe, HIVES, THROAT CLOSED, 06/13/17) UNKNOWN *MDRO Multi-Drug Resistant Organism (Verified Allergy, Unknown, 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 Home Meds Active Scripts Metronidazole (Flagyl) 250 Mg Tab, 250 MG PO TID for TRICHOMONIASIS INFECTION, # 30 TAB 0 Refills Prov:Teresa Fuentes MD R2 07/01/17 Levetiracetam (Keppra) 500 Mg Tab, 500 MG PO BID for Control Seizures, #60 TAB 3 Refills Prov:Teresa Fuentes MD R2 07/01/17 Tioconazole Vaginal (Monistat 1-Day Vaginal) 6.5% Oint, 1 APPL VAGINAL HS for Infection, #1 APPL 0 Refills Prov:Medardo Mcclain II, MD 06/11/17 Cephalexin (Keflex) 500 Mg Cap, 500 MG PO Q8H for Infection for 7 Days, #21 CAP 0 Refills Prov:Medardo Mcclain II, MD 06/11/17 Nitrofurantoin Monohydrate Macrocrystals (Macrobid) 100 Mg Capsule, 100 MG PO DAILY for Infection, #30 CAP 0 Refills Prov:Emilio Moody MD, R2 05/08/17 Vit-Iron Carbonyl ( Plus Iron 29-1 mg) 29 Mg Iron-1 Mg Tab, 1 TAB PO DAILY, #30 TAB Prov:Emilio Moody MD, R2 05/08/17 Review of Systems General / Constitutional: No: Fever, Weight Gain, Chills, Other Eyes: No: Diploplia, Blurred Vision, Visual changes, Pain, Photophobia HENT: No: Headaches, Vertigo, Lightheadedness Cardiovascular: No: Irregular Rhythm, Chest Pain or Discomfort, Palpitations, Tachycardia, Syncope, Varicosities, Edema, Cyanosis Respiratory: No: Cough, Short of Breath, Other Gastrointestinal: No: Nausea, Vomiting, Diarrhea Genitourinary: Vaginal Bleeding, No: Decreased Urinary Output, Oliguria Musculoskeletal: No: Limited ROM, Weakness, Cramping, Edema, Pain Skin: No Rash, No Itching, No Dryness, No Lumps, No Change in Pigmentation, No Change in Nails, No Alopecia, No Lesions Neurologic: No: Weakness, Dizziness, Syncope, Focal Abnormalities, Coordination Problem, Headache, Slurred Speech, Seizures Psychiatric: No: Depression, Suicidal Ideations, Homicidal Ideation Endocrine: No: Heat Intolerance, Cold Intolerance, Polydipsia, Polyuria, Other Physical Exam Narrative GENERAL: Well-nourished, well-developed patient. SKIN: Warm and dry. HEAD: Normocephalic and atraumatic. EYES: No scleral icterus. No injection or drainage. ENT: No nasal drainage noted. Mucous membranes pink. Airway patent. NECK: Supple, trachea midline. No JVD. CARDIOVASCULAR: Regular rate and rhythm without murmurs, gallops, or rubs. RESPIRATORY: Breath sounds equal bilaterally. No accessory muscle use. BREASTS: Bilateral exam showed no masses , no retractions, no nipple discharge. ABDOMEN/GI: Abdomen soft, non-tender, bowel sounds present, no rebound, no guarding Gravid to [-37] weeks size Fundal Height: [35-] GENITOURINARY: External Genitalia: intact and normal in appearance BUS glands: [-] Cervix: [post-] Dilatation: [-1] Effacement: [thick-] Station: [-3] Presentation: vtx-] Membranes: [intact ] Uterine Contractions: [none-] FHT's: Category: [1-] Baseline: [-133] Reactive: [yes-] Variability: [-mod] Decels: [0-] EXTREMITIES: No cyanosis or edema. BACK: Nontender without obvious deformity. No CVA tenderness. NEUROLOGICAL: Awake and alert. Motor and sensory grossly within normal limits. Five out of 5 muscle strength in all muscle groups. Normal speech. MDM Interpretation(s) Patient is 32-year-old black female at 37 weeks 6 days presents with vaginal spotting noted earlier in the evening. Since being on OB ED she's had no bleeding that up to the bathroom she saw no blood. The heart rate tracing is reactive she has no contractions seen small amount of bleeding on exam glove, cervix is 1 cm thick posterior, Plan Plan to discharge to allow patient to go sign-up rehabilitation weeks and [facility] later this morning Diagnosis Diagnosis: Primary Impression: Spotting affecting in third trimester Additional Impression: 37 weeks gestation of Disposition: 01 DISCHARGE HOME Condition: Stable Patient Instructions: General Instructions Additional Instructions: DRINK PLENTY OF WATER DURING DAY, RETURN IF LEAKING FLUID, VAGINAL BLEEDING, STRONG CONTRACTIONS AND DECREASE IN MOVEMENT. MAKE OB APPT AND KEEP ALL UPCOMING APPTS. Departure Forms: Tests/Procedures Medardo Mcclain II, MD Jul 24, 2017 02:36
== END 2017-07-24 02:48 | disposition home or self-care (01) ==
LOC: HOBED 01:56
DX: O26.853 Spotting complicating pregnancy, third trimester (principal); Z3A.37 37 weeks gestation of pregnancy
CPT/HCPCS: 99284